=== PATIENT | female | born 1995 | race Caucasian/White ===

== ENCOUNTER 2023-03-01 13:57 | Outpatient (REF) | payer MEDICAID, SELFPAY ==
--- NOTE | ~2023-03-01 | US_ITS ---
EXAMINATION: US BREAST (AXILLA), RIGHT CLINICAL INFORMATION: 27-year-old with small palpable and tender area noted right axilla for just over 2 months. No erythema. COMPARISON: None available. TECHNIQUE: Ultrasound of the right axilla is targeted to the area of clinical concern using grayscale imaging and color Doppler without and with harmonics. Patient is able to point to the area time of imaging. FINDINGS: The palpable concern corresponds to a small benign lymph node just beneath the skin with normal jamshid architecture and color flow pattern. Overall dimensions are 0.9 x 0.3 x 0.6 cm. There is no skin thickening or edema tracking in soft tissue planes. No lymphadenopathy or cystic or solid mass. No hyperemia. Results are discussed with the patient at time of visit. US/US breast RT limited IMPRESSION: - Small lymph node just beneath the skin in the right axilla measuring 0.9 x 0.3 x 0.6 cm corresponding to the palpable concern. ASSESSMENT: BI-RADS 2: Benign RECOMMENDATION: Patient should be managed based on the clinical impression as needed.
== END 2023-03-01 13:58 | disposition home or self-care (01) ==
LOC: HO.MAMMO 13:57
PROVIDERS: PCP Student in an Organized Health Care Education/Training Program; Visit Provider Student in an Organized Health Care Education/Training Program
DX: N63.11 Unspecified lump in the right breast, upper outer quadrant (principal)
CPT/HCPCS: 76642

== ENCOUNTER 2023-03-22 03:08 | Inpatient (IN) | payer MEDICAID, SELFPAY ==
[2023-03-22] VITALS (9 sets, daily range): BP systolic 94–109; BP diastolic 46–67; PULSE 56–86; RESP 12–25; TEMP 36.4–37.1; O2SAT 96–100; BMI 18.5
--- NOTE | ~2023-03-22 | CT_ITS ---
EXAMINATION: CT ABDOMEN AND PELVIS WITHOUT CONTRAST CLINICAL INFORMATION: Left flank pain, rule out obstructive uropathy COMPARISON: None available. TECHNIQUE: Multidetector volumetric imaging was performed from the superior aspect of the liver through the pubic symphysis. Sagittal and coronal reformatted images were obtained on the technologist's workstation. This CT examination was performed using dose optimization techniques as appropriate, variously including the following: *Automated exposure control *Adjustment of mA and/or kV according to patient size (this includes techniques or standardized protocols for targeted exams where dose is matched to indication/reason for exam; i.e. extremities or head) *Use of iterative reconstruction technique DLP: 299 mGy-cm FINDINGS: LUNG BASES: The visualized lung bases are unremarkable. LIVER, GALLBLADDER, AND BILIARY TREE: The liver is normal in size, shape, and attenuation. No focal hepatic lesion or biliary ductal dilatation is identified on this noncontrast exam. Gallbladder is contracted and not adequately evaluated. PANCREAS: Grossly unremarkable. SPLEEN: Unremarkable. ADRENAL GLANDS: Unremarkable. KIDNEYS AND URETERS: There is a proximal left ureteral calculus measuring 6 mm with mild hydronephrosis. No right hydronephrosis. BLADDER: Nearly empty and not adequately evaluated. GASTROINTESTINAL TRACT: No evidence of bowel obstruction. Limited assessment for wall thickening within some segments of the colon due to incomplete distention. Appendix appears nondilated. No free fluid or free air is seen. ABDOMINAL WALL: No significant hernia is appreciated. LYMPH NODES: Not adequately assessed in the absence of intravenous contrast and lack of intra-abdominal fat. VASCULAR: Unremarkable. PELVIC VISCERA: Grossly unremarkable. OSSEOUS STRUCTURES: Unremarkable. CT/CT abdomen pelvis wo IV con IMPRESSION: Proximal left ureteral calculus measuring 6 mm with mild hydronephrosis.
--- NOTE | ~2023-03-22 | FL_ITS ---
EXAMINATION: XR FLUOROSCOPY WITH IMAGES CLINICAL INFORMATION: Kidney stone COMPARISON: CT abdomen pelvis 03/22/2023 TECHNIQUE: FT: 74.4 sec .Images: 9. Dose: 9.34 mGy. DAP: N/A *performed by Dr. Andres FL/FL guidance in OR FINDINGS/impression: Spot views show retrograde contrast opacifying the proximal left ureter. Guidewire was placed in the collecting system. Double-J stent successfully placed from the renal pelvis to the bladder.
--- NOTE | 2023-03-22 03:29 | PC.NURSE ---
pt c/o LLQ pain that caused her to wake out of sleep, syncopal event witnessed by boyfriend, denies headstrike, denies injury pt is restless and tearful pt appears pale aox4 guarding affected area placed on continuous retail sales merchandiser
[2023-03-22 03:38] LABS: Basophils Absolute Auto 0.1 X10*3/uL (0.0-0.2); Basophils Percent Auto 0.8 % (0-2); Eosinophils Absolute Auto 0.2 X10*3/uL (0.0-0.4); Eosinophils Percent Auto 2.4 % (0-4); Hematocrit 34.5 % (37.0-47.0); Hemoglobin 11.8 g/dl (12.0-16.0); Imm Gran Abs Auto 0.02 X10*3/uL (0.00-0.03); Imm Gran Pct Auto 0.2 % (0.0-0.4); Lymphocytes Absolute Auto 3.9 X10*3/uL (1.2-4.9); Lymphocytes Percent Auto 47.7 % (20-40); MANUAL DIFF FLAG NO; Mean Corpuscular HGB Conc 34.2 g/dl (31.0-35.0); Mean Corpuscular Hemoglobin 31.5 pg (27.0-33.0); Mean Platelet Volume 10.6 fL (9.4-12.3); Monocytes Absolute Auto 0.8 X10*3/uL (0.1-1.2); Monocytes Percent Auto 9.7 % (2-11); Neutrophils Absolute Auto 3.2 x10*3/uL (2.0-8.3); Neutrophils Percent Auto 39.2 % (45-73); Platelet Count 290 X10*3/uL (160-400); Red Blood Count 3.75 X10*6/uL (4.20-5.50); Red Cell Distribution Width 12.2 % (11.0-16.0); White Blood Count 8.2 X10*3/uL (4.8-10.8)
--- NOTE | 2023-03-22 03:39 | ED_ITS ---
HPI - Abdominal Pain General Chief Complaint: Abdominal Pain Stated Complaint: ABD PAIN Time Seen by Provider: 03/22/23 03:20 Source: patient, family and EMS Mode of arrival: EMS Limitations: no limitations History of Present Illness HPI narrative: 27-year-old female came in by ambulance for evaluation of 2 days of left-sided abdominal pain, pain started as an intermittent pain localized to the left abdomen now the pain is more constant and severe 10/10 radiates to the back toward the left flank area, patient declined chance of being on her menstruation now, pain is associated with nausea and vomiting but no diarrhea, normal bowel movement. Sexually active with 1 partner declined any vaginal discharge, or abnormal vaginal bleeding, no fever or chills, never had intra-abdominal surgery in the past, last bowel movement was this morning and was normal. Related Data Allergies Allergy/AdvReac Type Severity Reaction Status Date / Time No Known Allergies Allergy Verified 03/22/23 03:25 [No Known Allergies*] Review of Systems Review of Systems All other systems are reviewed and are negative Constitutional: Reports as per HPI and Reports no additional constitutional complaints Eyes: Reports as per HPI and Reports no additional eye complaints Reports system reviewed and no additional complaints, except as documented Cardiovascular: Reports as per HPI and Reports no additional cardiovascular complaints Respiratory: Reports as per HPI and Reports no additional respiratory complaints Gastrointestinal: Reports as per HPI and Reports no additional gastrointestinal complaints Genitourinary: Reports no additional female genitourinary complaints Musculoskeletal: Reports no additional musculoskeletal complaints Skin/Breast: Reports system reviewed and no additional complaints, except as docu Psychiatric: Reports no additional psychiatric complaints Endocrine: Reports no additional endocrine complaints Hematologic/Lymphatic: Reports no additional hematologic/lymphatic complaints Allergic/Immunologic: Reports no additional allergic/immunologic complaints Reports system reviewed and no additional complaints, except as documented and Reports Abnormal speech present [facility] Social History Social History Alcohol intake: never Smoked in Last 30 Days: No Use of substances other than those prescribed or required for medical reasons: Yes Substance Use Type: Marijuana Advance Directives: No Advance Directives Information Provided: Yes Physical Exam ED Vital Signs: Vital Signs - 24 hr 03/22/23 03:19 03/22/23 03:54 03/22/23 04:01 Temperature 97.6 F Pulse Rate 68 69 Respiratory Rate 14 25 H 12 Blood Pressure 94/67 108/65 Pulse Oximetry 100 99 Oxygen Delivery Method Room Air Room Air 03/22/23 05:58 03/22/23 04:00 03/22/23 06:00 Temperature 98.1 F 97.9 F Pulse Rate 74 65 Respiratory Rate 14 19 13 Blood Pressure 108/65 109/66 Pulse Oximetry 97 98 Oxygen Delivery Method Room Air Room Air BMI result Body Mass Index 18.5 Vital signs have been reviewed as appeared to be correct. Blood pressure normal. Heart rate normal. Respiration rate normal. Temperature normal. Oxy gen saturation normal. Appearance: Alert. Oriented X3. No acute distress. Head: Normal external exam. Normocephalic. Atraumatic. No Iyer signs noted. No raccoon eyes noted Eyes: PERRLA. EOMI. Conjunctiva and sclera normal. Eyelids normal. ENT: TM's Normal. Pharynx normal. Uvula midline. Moist mucous membranes. No trismus noted. No drooling noted. No muffled voice noted. Neck: Normal inspection. Neck supple. FROM. No adenopathy. Thyroid Normal. No meningeal signs. No neck mass noted. CVS: Normal heart rate and rhythm. Heart sound normal. No murmurs noted. Pulses normal throughout. Respiratory: No respiratory distress. Painless inspiration. Breath sounds no rmal. No wheezes/rales/rhonchi noted. Chest nontender. No accessory muscle usage noted or decreased air movement noted. Abdomen: Left-sided abdominal tenderness, no rebound tenderness, no guarding. Bowel sounds normal in all 4 quadrants. No distention noted. No organomegaly noted. No visible injury noted. Back: Left CVA tenderness. Full range of motion noted. Skin: Skin warm and dry. Normal skin color. Normal skin turgor. No rashes/lesions/lacerations noted. Extremities: No lower extremity edema. Extremities exhibit normal range of motion. Extremities nontender. Neuro: Oriented X 3. Cranial nerve exam: II-XII are grossly intact No motor deficit. No sensory deficit. Reflexes normal. Course Course Course Narrative: 27-year-old female came in with severe left abdominal/flank pain, physical exam and CT revealing 6 mm in the proximal left ureter also UTI. Patient require mu ltiple doses of Dilaudid/morphine with no satisfactory relief of patient's pain pain is still 10/10 the case discussed with Dr. Amanda Giraldo who will admit. Medical Decision Making Differential Diagnosis Differential Diagnoses: The differential diagnosis associated with the presentation includes (, diverticulitis, appendicitis, kidney stone, ovarian cyst, UTI, electrolyte abnormalities, severe anemia.) Admission/Observation Consideration of admission/observation: Escalation of care including admission/observation considered Consult Healthcare Provider Management of the patient was discussed with: Rotary Slicing Machine Operator (Amanda Harvey) Lab Data MDM Lab Attestation statement: I reviewed the patient's lab results. 03/22/23 03:30 03/22/23 03:30 Labs: Lab Results 03/22/23 03/22/23 03/22/23 Range/Units 03:30 03:30 04:09 WBC 8.2 (4.8-10.8) X10*3/uL RBC 3.75 L (4.20-5.50) X10*6/uL Hgb 11.8 L (12.0-16.0) g/dl Hct 34.5 L (37.0-47.0) % MCV 92.0 (80.0-98.0) fL MCH 31.5 (27.0-33.0) pg MCHC 34.2 (31.0-35.0) g/dl RDW 12.2 (11.0-16.0) % Plt Count 290 (160-400) X10*3/uL MPV 10.6 (9.4-12.3) fL Immature Gran % (Auto) 0.2 (0.0-0.4) % Neut % (Auto) 39.2 L (45-73) % Lymph % (Auto) 47.7 H (20-40) % [place] % (Auto) 9.7 (2-11) % Eos % (Auto) 2.4 (0-4) % Baso % (Auto) 0.8 (0-2) % Lymph # (Auto) 3.9 (1.2-4.9) X10*3/uL [place] # (Auto) 0.8 (0.1-1.2) X10*3/uL Eos # (Auto) 0.2 (0.0-0.4) X10*3/uL Baso # (Auto) 0.1 (0.0-0.2) X10*3/uL Abs Immat Gran (auto) 0.02 (0.00-0.03) X10*3/uL Absolute Neuts (auto) 3.2 (2.0-8.3) x10*3/uL Absolute Nucleated RBC 0.000 (0.0-0.012) X10*3/uL Nucleated RBC % (auto) 0.0 (0.0-0.2) /100WBC Sodium 141 (135-145) mmol/L Potassium 3.5 (3.3-5.1) mmol/L Chloride 108 (96-108) mmol/L Carbon Dioxide 26 (22-29) mmol/L Anion Gap 11 L (12-20) BUN 11 (9-16) mg/dL Creatinine 0.79 (0.5-1.4) mg/dL Estim Creat Clear Calc 87.0 Estimated GFR > 60 Random Glucose 103 (60-115) mg/dL Calcium 9.1 (8.4-10.2) mg/dL Total Bilirubin 0.2 (0.0-1.0) mg/dL Direct Bilirubin < 0.2 (0.0-0.5) mg/dL AST 16 (5-31) U/L ALT 9 (0-31) U/L Alkaline Phosphatase 54 (39-117) U/L Total Protein 6.4 L (6.5-8.0) g/dL Albumin 3.7 (3.5-5.0) g/dL Lipase 17 (8-78) U/L Urine Color Yellow Urine Appearance Cloudy Urine pH 7.5 (5.0-9.0) Ur Specific [place] 1.020 (1.005-1.025) Urine Protein 30 (1+) H (Neg-Trace) mg/dL Urine Glucose (UA) Negative (Negative) mg/dL Urine Ketones Trace (Negative) mg/dL Urine Blood Large (3+) H (Negative) Urine Nitrite Negative (Negative) Ur Leukocyte Esterase Small (1+) H (Negative) Urine RBC >20 H (0-2) /HPF Urine WBC 11-20 H (0-5) /HPF Ur Squamous Epith Cells 3-5 (0-2) /HPF Urine Bacteria None Seen (None Seen) Hyaline Casts 0-2 (0-2) /LPF Urine Test (NEGATIVE) 03/22/23 Range/Units 04:09 WBC (4.8-10.8) X10*3/uL RBC (4.20-5.50) X10*6/uL Hgb (12.0-16.0) g/dl Hct (37.0-47.0) % MCV (80.0-98.0) fL MCH (27.0-33.0) pg MCHC (31.0-35.0) g/dl RDW (11.0-16.0) % Plt Count (160-400) X10*3/uL MPV (9.4-12.3) fL Immature Gran % (Auto) (0.0-0.4) % Neut % (Auto) (45-73) % Lymph % (Auto) (20-40) % [place] % (Auto) (2-11) % Eos % (Auto) (0-4) % Baso % (Auto) (0-2) % Lymph # (Auto) (1.2-4.9) X10*3/uL [place] # (Auto) (0.1-1.2) X10*3/uL Eos # (Auto) (0.0-0.4) X10*3/uL Baso # (Auto) (0.0-0.2) X10*3/uL Abs Immat Gran (auto) (0.00-0.03) X10*3/uL Absolute Neuts (auto) (2.0-8.3) x10*3/uL Absolute Nucleated RBC (0.0-0.012) X10*3/uL Nucleated RBC % (auto) (0.0-0.2) /100WBC Sodium (135-145) mmol/L Potassium (3.3-5.1) mmol/L Chloride (96-108) mmol/L Carbon Dioxide (22-29) mmol/L Anion Gap (12-20) BUN (9-16) mg/dL Creatinine (0.5-1.4) mg/dL Estim Creat Clear Calc Estimated GFR Random Glucose (60-115) mg/dL Calcium (8.4-10.2) mg/dL Total Bilirubin (0.0-1.0) mg/dL Direct Bilirubin (0.0-0.5) mg/dL AST (5-31) U/L ALT (0-31) U/L Alkaline Phosphatase (39-117) U/L Total Protein (6.5-8.0) g/dL Albumin (3.5-5.0) g/dL Lipase (8-78) U/L Urine Color Urine Appearance Urine pH (5.0-9.0) Ur Specific [place] (1.005-1.025) Urine Protein (Neg-Trace) mg/dL Urine Glucose (UA) (Negative) mg/dL Urine Ketones (Negative) mg/dL Urine Blood (Negative) Urine Nitrite (Negative) Ur Leukocyte Esterase (Negative) Urine RBC (0-2) /HPF Urine WBC (0-5) /HPF Ur Squamous Epith Cells (0-2) /HPF Urine Bacteria (None Seen) Hyaline Casts (0-2) /LPF Urine Test NEGATIVE (NEGATIVE) Independent Interpretation I performed an independent interpretation of an: CT Scan (Abdomen and pelvis: 6 mm stone in the proximal ureter with hydronephrosis and hydroureter) Radiology Impression Discussion of test interpretation with radiology: I have reviewed the radiologist's reading. Medications Administered Discontinued Medications Generic Name Dose Route Start Last Admin Trade Name Freq PRN Reason Stop Dose Admin Sodium Chloride 1,000 mls @ 999 mls/hr 03/22/23 03:38 03/22/23 05:07 Ns IV 03/22/23 04:38 Infused .Q1H1M ONE Infusion Ceftriaxone Sodium 1 gm/ 50 mls @ 100 mls/hr 03/22/23 05:48 03/22/23 06:38 Sodium Chloride IV 03/22/23 06:17 Infused ONCE ONE Infusion Morphine Sulfate 2 mg 03/22/23 03:38 03/22/23 03:54 Morphine Sulfate 2 Mg/Ml Cartridge IVPUSH 03/22/23 03:39 2 mg ONCE ONE Administration Protocol Morphine Sulfate 2 mg 03/22/23 05:48 03/22/23 05:58 Morphine Sulfate 2 Mg/Ml Cartridge IVPUSH 03/22/23 05:49 2 mg ONCE ONE Administration Protocol Discharge Plan Discharge Clinical Impression: UTI (urinary tract infection), Calculus of left ureter Patient Disposition: Admitted As Inpatient
[2023-03-22 03:52] LABS: Alanine Aminotransferase 9 U/L (0-31); Albumin Level 3.7 g/dL (3.5-5.0); Alkaline Phosphatase 54 U/L (39-117); Anion Gap 11 (12-20); Aspartate Amino Transferase 16 U/L (5-31); Bilirubin Direct < 0.2 mg/dL (0.0-0.5); Bilirubin Total 0.2 mg/dL (0.0-1.0); Blood Urea Nitrogen 11 mg/dL (9-16); Calcium 9.1 mg/dL (8.4-10.2); Carbon Dioxide 26 mmol/L (22-29); Chloride 108 mmol/L (96-108); Estimated Glomerular Filt Rate > 60; Glucose Random 103 mg/dL (60-115); Lipase 17 U/L (8-78); Potassium 3.5 mmol/L (3.3-5.1); Sodium 141 mmol/L (135-145); Total Protein 6.4 g/dL (6.5-8.0)
[2023-03-22] MEDS: Morphine Sulfate 2 MG/ML CARTRIDGE IVPUSH ×2 (03:54→05:58)
[2023-03-22] MEDS: 0.9 % Sodium Chloride 1,000 ML 999 ML IV (03:55)
[2023-03-22 04:15] LABS: Appearance Urine Cloudy; Color Urine Yellow; Glucose Urine UA Negative (Negative); Leukocyte Esterase Urine Small (1+) (Negative); Nitrite Urine Negative (Negative); PH 7.5 (5.0-9.0); UMIC TRIGGER UACC YES; Urine Blood Large (3+) (Negative); Urine Ketones Trace mg/dL (Negative); Urine Protein 30 (1+) mg/dL (Neg-Trace)
[2023-03-22 04:16] LABS: UPreg QC Valid YES; Urine Pregnancy NEGATIVE (NEGATIVE)
[2023-03-22 04:20] LABS: Bacteria Urine None Seen (None Seen); Hyaline Casts Urine 0-2 /LPF (0-2); RBC Urine >20 /HPF (0-2); UACC Culture Trigger YES
--- NOTE | 2023-03-22 05:50 | PC.NURSE ---
provider declined [id number]
[2023-03-22] MEDS: cefTRIAXone sodium 1 GM in 0.9 % Sodium Chloride 50 ML IV (06:00)
[2023-03-22] MEDS: HYDROmorphone HCl 1 MG/ML SYRINGE IVPUSH (06:59)
--- NOTE | 2023-03-22 07:36 | PC.NURSE ---
handoff report given to LAURO Canales
--- NOTE | 2023-03-22 07:53 | PHA.MEDREC ---
Addendum entered by Payton Roberson [facility] 03/22/23 07:54: Patient takes Yolanda Arreola Original Note: Pharmacy Consult ? Medication Reconciliation Pharmacy has completed the medication reconciliation Patient is only at [facility] at home.
--- NOTE | 2023-03-22 08:51 | PM.HPGS ---
History of Present Illness History of Present Illness Date of Service: 03/23/23 Chief complaint: left ureteral stone, flank pain, UTI Narrative: Flor Vazquez is a 27 year old female admitted for left flank pain. She presented to the ED by ambulance for evaluation of 2 days of left-sided abdominal pain, pain started as an intermittent pain localized to the left abdomen. UA- +WBC's, +RBC's- suggestive of UTI. CTAP notes Left proximal ureteral stone with mild hydronephrosis. Plan IV fluid hydration, pain management, IV ABx, cysto/stent/possible ureteroscopy in AM Review of Systems Review of Systems: 10 point ROS negative other than stated in the [facility] Social History Social History Household Members: Other Household Members Other:: boyfriend Housing: Apartment Do you presently have visiting nurse or other home services: No Alcohol intake: never Patient Tobacco Use Status: Never used Tobacco Smoked in Last 30 Days: No Use of substances other than those prescribed or required for medical reasons: Yes Substance Use Type: Marijuana Substance Use Frequency: Occasionally Last Used Substance: Hours (ago) Currently Displaying Signs/Symptoms of Drug Intoxication Withdrawal: No Any prior treatment program specific to substance use: No Have you been hit, kicked, punched, or otherwise hurt by someone within the past year? If so, by whom?: No Do you feel safe in your current relationship?: Yes Is there a partner from a previous relationship who is making you feel unsafe now?: No Are you made to feel afraid or neglected: No Advance Directives: No Advance Directives Information Provided: Yes Do you have thoughts of harming others: None Do you have a plan to hurt others: No Plan Recently lost weight without trying: No How much weight loss: 2-13 pounds Eating poorly because of decreased appetite: Yes Nutrition screen score: 2 Nutrition Risks: No Nutritional Risk Patient : No : No Poor oral hygiene: No Meds Allergies Allergy/AdvReac Type Severity Reaction Status Date / Time No Known Allergies Allergy Verified 03/22/23 03:25 [No Known Allergies*] Home Medications Medication Instructions Recorded Confirmed Last Taken Type No Known Home Meds 03/22/23 03/22/23 Unknown History Physical Exam Vital Signs: Vital Signs: Last Vital Signs Temp 97.9 F 03/22/23 06:00 Pulse 59 03/22/23 08:50 Resp 14 03/22/23 08:50 BP 102/46 L 03/22/23 08:50 Pulse Ox 97 03/22/23 08:50 O2 Del Method Room Air 03/22/23 08:50 BMI result Body Mass Index 18.5 Const: General: cooperative, healthy appearing and no acute distress Orientation/consciousness: patient oriented x3 HEENT: Head: Yes normal to inspection, Yes normocephalic and Yes atraumatic Eyes: Conjunctivae: conjunctivae normal Neck: Neck: Yes normal visual inspection and Yes trachea midline Chest: Chest palpation & inspection: normal inspection of the chest Resp: Effort & Inspection: normal respiratory effort Cardio: Rate: regular rate GI: Inspection: Yes normal to inspection Palpation (GI): Soft to palpation : General: Yes CVA tenderness on the left Back/Spine/Pelvis: Back: CVA tenderness Skin: General skin exam: no rashes or lesions noted Neuro: General: patient oriented x3 Extrem: General: No edema Psych: Appearance: grossly normal Results Results Labs: Short CBC 03/22/23 Range/Units 03:30 WBC 8.2 (4.8-10.8) X10*3/uL Hgb 11.8 L (12.0-16.0) g/dl Hct 34.5 L (37.0-47.0) % Plt Count 290 (160-400) X10*3/uL BMP 03/22/23 03:30 Sodium 141 Potassium 3.5 Chloride 108 Carbon Dioxide 26 BUN 11 Creatinine 0.79 Calcium 9.1 Liver Function 03/22/23 Range/Units 03:30 Total Bilirubin 0.2 (0.0-1.0) mg/dL Direct Bilirubin < 0.2 (0.0-0.5) mg/dL AST 16 (5-31) U/L ALT 9 (0-31) U/L Alkaline Phosphatase 54 (39-117) U/L Albumin 3.7 (3.5-5.0) g/dL Urine 03/22/23 03/22/23 Range/Units 04:09 04:09 Urine Color Yellow Urine Appearance Cloudy Urine pH 7.5 (5.0-9.0) Ur Specific [place] 1.020 (1.005-1.025) Urine Protein 30 (1+) H (Neg-Trace) mg/dL Urine Glucose (UA) Negative (Negative) mg/dL Urine Test NEGATIVE (NEGATIVE) Abdomen CT scan report/results: report reviewed and image reviewed CT scan - pelvis: report reviewed and image reviewed Additional studies: Date of Service: 03/22/23 EXAMINATION: CT ABDOMEN AND PELVIS WITHOUT CONTRAST? CLINICAL INFORMATION: Left flank pain, rule out obstructive uropathy? COMPARISON: None available. TECHNIQUE: Multidetector volumetric imaging was performed from the superior aspect of the liver through the pubic symphysis. Sagittal and coronal reformatted images were obtained on the technologist's workstation.? This CT examination was performed using dose optimization techniques as appropriate, variously including the following: *Automated exposure control *Adjustment of mA and/or kV according to patient size (this includes techniques or standardized protocols for targeted exams where dose is matched to indication/reason for exam; i.e. extremities or head) *Use of iterative reconstruction technique DLP: 299 mGy-cm FINDINGS: LUNG BASES: The visualized lung bases are unremarkable.? LIVER, GALLBLADDER, AND BILIARY TREE: The liver is normal in size, shape, and attenuation. No focal hepatic lesion or biliary ductal dilatation is identified on this noncontrast exam. Gallbladder is contracted and not adequately evaluated.? PANCREAS: Grossly unremarkable.? SPLEEN: Unremarkable.? ADRENAL GLANDS: Unremarkable.? KIDNEYS AND URETERS: There is a proximal left ureteral calculus measuring 6 mm with mild hydronephrosis. No right hydronephrosis.? BLADDER: Nearly empty and not adequately evaluated.? GASTROINTESTINAL TRACT: No evidence of bowel obstruction. Limited assessment for wall thickening within some segments of the colon due to incomplete distention. Appendix appears nondilated. No free fluid or free air is seen.? ABDOMINAL WALL: No significant hernia is appreciated.? LYMPH NODES: Not adequately assessed in the absence of intravenous contrast and lack of intra-abdominal fat. VASCULAR: Unremarkable. PELVIC VISCERA: Grossly unremarkable.? OSSEOUS STRUCTURES: Unremarkable.? IMPRESSION: Proximal left ureteral calculus measuring 6 mm with mild hydronephrosis. ? Assessment and Plan (1) UTI (urinary tract infection): Status: Acute (2) Calculus of left ureter: Status: Acute (3) Hydronephrosis: Status: Acute Plan Plan IV fluid hydration, pain management, IV ABx, cysto/stent/possible ureteroscopy laser- left Time Spent With Patient Time: Total time managing care of this patient today ____ minutes. Quality Stroke Does the patient have a stroke diagnosis?: No VTE Prior VTE?: No VTE Risk Level:: Surgical - low VTE Device Contraindication: Treatment Not Indicated VTE Drug Contraindication: Treatment Not Indicated Procedures Date of Service Date of Service: 03/23/23
[2023-03-22] MEDS: Ketorolac Tromethamine 15 MG/ML VIAL IVPUSH ×2 (09:25→17:07)
[2023-03-22] MEDS: 0.9 % Sodium Chloride 1,000 ML 125 ML IVCONT ×2 (09:28→16:53)
--- NOTE | 2023-03-22 15:05 | PC.NURSE ---
First attempt to give report 1450. second attempt 1505.
--- NOTE | 2023-03-22 15:32 | PC.NURSE ---
Report to [place] [id number]
[2023-03-22] MEDS: HYDROmorphone HCl 1 MG/ML SYRINGE 0.5 MG IVPUSH (16:27)
[2023-03-22] MEDS: ondansetron HCL 4 MG/2 ML VIAL IVPUSH (17:27)
[2023-03-22] MEDS: oxyCODONE HCl Immed Release 5 MG TABLET PO (20:43)
[2023-03-23] VITALS (12 sets, daily range): BP systolic 105–136; BP diastolic 57–82; PULSE 46–74; RESP 15–18; TEMP 36–36.9; O2SAT 96–100; BMI 18.5
[2023-03-23] MEDS: Ketorolac Tromethamine 15 MG/ML VIAL IVPUSH ×3 (00:49→17:02)
[2023-03-23] MEDS: 0.9 % Sodium Chloride 1,000 ML 125 ML IVCONT ×3 (00:53→17:51)
[2023-03-23] MEDS: HYDROmorphone HCl 1 MG/ML SYRINGE 0.5 MG IVPUSH ×3 (01:12→14:37)
[2023-03-23 06:00] LABS: MANUAL DIFF FLAG NO
[2023-03-23 06:03] LABS: Basophils Absolute Auto 0.1 X10*3/uL (0.0-0.2); Basophils Percent Auto 0.7 % (0-2); Eosinophils Absolute Auto 0.2 X10*3/uL (0.0-0.4); Hematocrit 33.8 % (37.0-47.0); Hemoglobin 11.4 g/dl (12.0-16.0); Imm Gran Abs Auto 0.02 X10*3/uL (0.00-0.03); Imm Gran Pct Auto 0.2 % (0.0-0.4); Lymphocytes Absolute Auto 2.5 X10*3/uL (1.2-4.9); Mean Corpuscular HGB Conc 33.7 g/dl (31.0-35.0); Mean Corpuscular Hemoglobin 32.1 pg (27.0-33.0); Mean Corpuscular Volume 95.2 fL (80.0-98.0); Mean Platelet Volume 10.4 fL (9.4-12.3); Monocytes Absolute Auto 0.9 X10*3/uL (0.1-1.2); Monocytes Percent Auto 10.7 % (2-11); Neutrophils Absolute Auto 4.9 x10*3/uL (2.0-8.3); Neutrophils Percent Auto 57.4 % (45-73); Platelet Count 263 X10*3/uL (160-400); Red Blood Count 3.55 X10*6/uL (4.20-5.50); Red Cell Distribution Width 12.3 % (11.0-16.0); White Blood Count 8.6 X10*3/uL (4.8-10.8)
[2023-03-23 06:28] LABS: Anion Gap 8 (12-20); Blood Urea Nitrogen 7 mg/dL (9-16); Calcium 8.5 mg/dL (8.4-10.2); Carbon Dioxide 24 mmol/L (22-29); Chloride 112 mmol/L (96-108); Creatinine Clr Calc Pharmacy 98.2; Estimated Glomerular Filt Rate > 60; Glucose Random 86 mg/dL (60-115); Sodium 140 mmol/L (135-145)
--- NOTE | 2023-03-23 12:06 | HO.ANESPROP2 ---
HPI - Anesthesia Eval Consult details Narrative: forcysto and ureteoscopy [facility] [place] Active Problems Active Problems: All Active Problems (Updated 03/23/23 @ 09:56 by Amanda Andres MD) Hydronephrosis (Acute) UTI (urinary tract infection) (Acute) Calculus of left ureter (Acute) Family History Family history of problems with anesthesia: No Surgical History History of Problems with Anesthesia: No Social History Social History Household Members: Other Household Members Other:: boyfriend Housing: Apartment Do you presently have visiting nurse or other home services: No Alcohol intake: never Patient Tobacco Use Status: Never used Tobacco Smoked in Last 30 Days: No Use of substances other than those prescribed or required for medical reasons: Yes Substance Use Type: Marijuana Substance Use Frequency: Occasionally Last Used Substance: Hours (ago) Currently Displaying Signs/Symptoms of Drug Intoxication Withdrawal: No Any prior treatment program specific to substance use: No Have you been hit, kicked, punched, or otherwise hurt by someone within the past year? If so, by whom?: No Do you feel safe in your current relationship?: Yes Is there a partner from a previous relationship who is making you feel unsafe now?: No Are you made to feel afraid or neglected: No Are you DNR?: No Advance Directives: No Advance Directives Information Provided: Yes Do you have thoughts of harming others: None Do you have a plan to hurt others: No Plan Recently lost weight without trying: No How much weight loss: 2-13 pounds Eating poorly because of decreased appetite: Yes Nutrition screen score: 2 Nutrition Risks: No Nutritional Risk Patient : No : No Poor oral hygiene: No Meds Allergies Allergy/AdvReac Type Severity Reaction Status Date / Time No Known Allergies Allergy Verified 03/22/23 03:25 [No Known Allergies*] Active Medications: Current Medications Acetaminophen (Acetaminophen 325 Mg Tablet) 650 mg PO Q6H PRN PRN Reason: Pain, Mild (Pain Scale 1-3) Docusate Sodium (Docusate Sodium 100 Mg Capsule) 100 mg PO DAILY PRN PRN Reason: Constipation Hydromorphone HCl (Hydromorphone Hcl 1 Mg/Ml Syringe) 0.5 mg IVPUSH Q4H PRN; Protocol PRN Reason: Pain, Severe (Pain Scale 7-10) Last Admin: 03/23/23 09:52 Dose: 0.5 mg Sodium Chloride (Ns) 1,000 mls @ 125 mls/hr IVCONT .Q8H TIM Last Infusion: 03/23/23 10:43 Dose: 0 mls/hr Cefazolin Sodium 1 gm/ Sodium (Chloride) 50 mls @ 100 mls/hr IV Q8H [facility] Last Infusion: 03/23/23 09:23 Dose: Infused Lactated Ringer's (Lr) 1,000 mls @ 50 mls/hr IVCONT .Q20H TIM Ketorolac Tromethamine (Ketorolac Tromethamine 15 Mg/Ml Vial) 15 mg IVPUSH Q8H [facility] Last Admin: 03/23/23 08:46 Dose: 15 mg Ondansetron HCl (Ondansetron Hcl 4 Mg/2 Ml Vial) 4 mg IVPUSH Q8H PRN PRN Reason: Nausea and Vomiting Last Admin: 03/22/23 17:27 Dose: 4 mg Oxycodone HCl (Oxycodone Hcl Immed Release 5 Mg Tablet) 5 mg PO Q6H PRN PRN Reason: Pain, Moderate(Pain Scale 4-6) Last Admin: 03/22/23 20:43 Dose: 5 mg Sodium Chloride (0.9 % Sodium Chloride Flush 3 Ml Syringe) 3 ml IVFLUSH QSHIFT [facility] Last Admin: 03/23/23 07:28 Dose: Not Given Home Medications Medication Instructions Recorded Confirmed Last Taken Type No Known Home Meds 03/22/23 03/22/23 Unknown History Exam Exam Date and Time: March 23, 2023 1206 Height,Weight and Vital Signs: Height 5 ft 6 in Weight 52 kg Last Vital Signs Temp 98.5 F 03/23/23 11:00 Pulse 61 03/23/23 11:00 Resp 15 03/23/23 11:00 BP 106/69 03/23/23 11:00 Pulse Ox 99 03/23/23 11:00 O2 Del Method Room Air 03/23/23 11:00 Pertinent Lab Results Pertinent Lab Results: Laboratory Tests 03/22/23 03/22/23 03/22/23 03:30 03:30 04:09 WBC 8.2 RBC 3.75 L Hgb 11.8 L Hct 34.5 L MCV 92.0 MCH 31.5 MCHC 34.2 RDW 12.2 Plt Count 290 MPV 10.6 Immature Gran % (Auto) 0.2 Neut % (Auto) 39.2 L Lymph % (Auto) 47.7 H [place] % (Auto) 9.7 Eos % (Auto) 2.4 Baso % (Auto) 0.8 Lymph # (Auto) 3.9 [place] # (Auto) 0.8 Eos # (Auto) 0.2 Baso # (Auto) 0.1 Abs Immat Gran (auto) 0.02 Absolute Neuts (auto) 3.2 Absolute Nucleated RBC 0.000 Nucleated RBC % (auto) 0.0 Sodium 141 Potassium 3.5 Chloride 108 Carbon Dioxide 26 Anion Gap 11 L BUN 11 Creatinine 0.79 Estim Creat Clear Calc 87.0 Estimated GFR > 60 Random Glucose 103 Calcium 9.1 Total Bilirubin 0.2 Direct Bilirubin < 0.2 AST 16 ALT 9 Alkaline Phosphatase 54 Total Protein 6.4 L Albumin 3.7 Lipase 17 Urine Color Yellow Urine Appearance Cloudy Urine pH 7.5 Ur Specific [place] 1.020 Urine Protein 30 (1+) H Urine Glucose (UA) Negative Urine Ketones Trace Urine Blood Large (3+) H Urine Nitrite Negative Ur Leukocyte Esterase Small (1+) H Urine RBC >20 H Urine WBC 11-20 H Ur Squamous Epith Cells 3-5 Urine Bacteria None Seen Hyaline Casts 0-2 Urine Test 03/22/23 03/23/23 03/23/23 04:09 05:49 05:49 WBC 8.6 RBC 3.55 L Hgb 11.4 L Hct 33.8 L MCV 95.2 MCH 32.1 MCHC 33.7 RDW 12.3 Plt Count 263 MPV 10.4 Immature Gran % (Auto) 0.2 Neut % (Auto) 57.4 Lymph % (Auto) 29.0 [place] % (Auto) 10.7 Eos % (Auto) 2.0 Baso % (Auto) 0.7 Lymph # (Auto) 2.5 [place] # (Auto) 0.9 Eos # (Auto) 0.2 Baso # (Auto) 0.1 Abs Immat Gran (auto) 0.02 Absolute Neuts (auto) 4.9 Absolute Nucleated RBC 0.000 Nucleated RBC % (auto) 0.0 Sodium 140 Potassium 4.0 Chloride 112 H Carbon Dioxide 24 Anion Gap 8 L BUN 7 L Creatinine 0.70 Estim Creat Clear Calc 98.2 Estimated GFR > 60 Random Glucose 86 Calcium 8.5 D Total Bilirubin Direct Bilirubin AST ALT Alkaline Phosphatase Total Protein Albumin Lipase Urine Color Urine Appearance Urine pH Ur Specific [place] Urine Protein Urine Glucose (UA) Urine Ketones Urine Blood Urine Nitrite Ur Leukocyte Esterase Urine RBC Urine WBC Ur Squamous Epith Cells Urine Bacteria Hyaline Casts Urine Test NEGATIVE Airway TM Dist: >3cm Neck ROM: Full Heart: rrr Lungs: cta Assessment and Plan Assessment Anesthesia Assessment: Anesthesia Plan Discussed and Chart Reviewed Final Anesthetic Review Family History of Problems with Anesthesia: No History of Problems with Anesthesia: No NPO: Yes ASA Class: II Final Preanesthetic Review: No Changes in Pt Med Stat, Meds/Allgs Chart Reviewed, Consent Obtained/Reviewed and Anes Risks/Benef Reviewed Patient Risk: Low Procedure Risk: Low Anesthetic Plan Anesthetic Plan: GA Disposition: Inp. Admit - [facility]
--- NOTE | 2023-03-23 12:36 | MHC.CM.PN ---
CM ATTEMPTED TO MEET W/PT HOWEVER PT OFF UNIT FOR STENT PLACEMENT, CM WILL REVISIT.
--- NOTE | 2023-03-23 13:17 | W.PM.OPN ---
Operative Note Operative Note Date of Service: 03/23/23 Narrative: PreOperative Diagnosis:?? left proximal ureteral stone Post Operative Diagnosis:?? left proximal ureteral stone Procedure: - cystoscopy, left retrograde, left ureteroscopy laser lithotripsy stent insertion, 6 [place] by 24 cm Surgeon:?Dr Amanda Andres Anesthesia:? General Indications for procedure: Flor is a 27 year old female presented with left flank pain CTAP - 6 mm obstructing left proximal ureteral stone. Procedure: After informed consent was verified the patient was brought to the operating placed on the OR table in supine position.? General Anesthesia was administered per protocol.? The patient was placed in lithotomy position, prepped and draped in the usual sterile fashion.? Safety pause time-out and side of surgery confirmed.? Antibiotics confirmed. 2% lidocaine jelly 10 mL was passed transurethrally. A 22 [place] cystoscope was inserted transurethrally, The bladder was visualized.? Both ureteric orifices were in normal position. An open-ended ureteral catheter was passed into the left ureteral orifice and a retrograde examination was performed. There was a filling defect in the proximal ureter and dilatation of the proximal ureter and renal pelvis and calices. A guidewire was passed through the ureteral catheter into the kidney. The balloon dilator size 12 fr was passed over the guide -wire the balloon was inflated to 10 mmHg and the intramural ureter was dilated for 50 seconds. The balloon was deflated and removed. After removing the balloon dilator a 2nd guidewire was then passed into the kidney to use as a safety. On subsequent fluoroscopy, the stone was noted to have migrated into the kidney. The cystoscope was removed, leaving both guidewires in place. One guidewire was used as the safety and was attached to the draping. The desposible flexible ureteroscope was passed over one of the guidewires into the kidney, the stone was visualized. One guidewire was then removed. Laser lithotripsy of the stone was done using the 220 fiber with a settings 0.8 joules by 6 hertz alternating with 0.5 by 20 hz. There was good fragmentation of the stone. The ureteroscope was removed. The cystoscope was passed over the safety guidewire. A? 6 [place] by 24 cm stent was placed into the ureter and renal pelvis under a combination of fluoroscopy and direct visualization. The bladder was emptied.? The rigid cystoscope was removed. ? The patient tolerated the procedure well and was brought to the recovery room in stable condition. Complications: None Drains: Ureteral stent as dictated above
--- NOTE | 2023-03-23 13:57 | MHC.CLN ---
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
[2023-03-23] MEDS: predniSONE 20 MG TABLET PO (14:19)
[2023-03-23] MEDS: Tamsulosin HCL 0.4 MG CAPSULE PO (14:19)
--- NOTE | 2023-03-23 16:23 | MHC.CM.PN ---
EMR REVIEWED, CM MET W/PT AT BEDSIDE AND S.O. THERE WELL, PT DECLINED WET TRIMMER AND WAS ABLE TO ANSWER ALL QUESTIONS, PT LIVES W/S.O. AND DTR, IS INDEP W/ALL CARE, NO DME/SERVICES, PT VERIFIES PCP IS AT [facility], DENIES RECEIVING VACCINES FOR COVID19, PT EDUCATED ON AND DECLINES TO COMPLETE AN HCP. ANTIC D/C HOME NO SERVICES W/S.O. FOR TRANSPORT WHEN MEDICALLY CLEARED.
[2023-03-23] MEDS: oxyCODONE HCl Immed Release 5 MG TABLET PO (17:49)
[2023-03-23] MEDS: Acetaminophen 325 MG TABLET 650 MG PO (20:07)
[2023-03-24] MEDS: Melatonin 3 MG TABLET PO (00:23)
[2023-03-24] MEDS: Ketorolac Tromethamine 15 MG/ML VIAL IVPUSH ×2 (00:26→08:06)
[2023-03-24] MEDS: 0.9 % Sodium Chloride 1,000 ML 125 ML IVCONT (00:37)
[2023-03-24 03:09] VITALS: BP 99/60; PULSE 65; RESP 16; TEMP 36.4; O2SAT 98
[2023-03-24] MEDS: oxyCODONE HCl Immed Release 5 MG TABLET PO (04:47)
[2023-03-24 07:42] VITALS: BP 102/64; PULSE 72; RESP 16; TEMP 36.7; O2SAT 99
--- NOTE | 2023-03-24 10:09 | HO.POSTANES ---
Post Anesthesia Evaluation Post Anesthesia Evaluation Date of Service: 03/24/23 Vital Signs: Vital Signs Temp Pulse Resp BP Pulse Ox O2 Del Method 03/24/23 07:42 98.0 F 72 16 102/64 99 Room Air 03/24/23 03:09 97.5 F 65 16 99/60 98 Room Air Anesthesia: General Mental Status: Awake Pain Control: Satisfactory Nausea/Vomiting: None Hydration: Adequate Anesthesia-Related Issues: No Anes. Related Issues
--- NOTE | 2023-03-24 15:08 | MHC.CM.PN ---
pt dcd home no skilled servceis ordered by
--- NOTE | 2023-06-14 20:44 | P.DS_ITS ---
DS: Providers Provider Date of Service: 03/24/23 Date of admission: 03/22/23 08:45 Date of discharge: 03/24/23 Primary care physician: Kimberly Moreno MD Admitting clinician: Amanda nAdres Attending physician on admission: Amanda Andres Attending physician on discharge: Amanda Andres Discharging clinician: Amanda Andres DS: Diagnosis Discharge Diagnosis (1) UTI (urinary tract infection): Status: Acute (2) Calculus of left ureter: Status: Acute (3) Hydronephrosis: Status: Resolved DS: Summary Hospital Course Hospital Course: Flor Vazquez is a 27 year old female admitted for left flank pain. She presented to the ED by ambulance for evaluation of 2 days of left-sided abdominal pain, pain started as an intermittent pain localized to the left abdomen. UA- +WBC's, +RBC's- suggestive of UTI. CTAP noted Left proximal ureteral stone with mild hydronephrosis. Hospital course: IV fluid hydration, pain management, IV ABx, s/p left retrograde, left ureteroscopy laser lithotripsy stent insertion, 6 [place] by 24 cm Time Spent with Patient Time attestation: Total time managing care of this patient today ____ minutes. Discharge coordination time: Greater than 30 minutes Quality: Safe Use of Opioids Does Pt have an Active Cancer Diagnosis on the Problem List?: No Quality: Stroke Does the patient have a stroke diagnosis?: No Physical Exam Vital Signs: Vital Signs: Last Vital Signs Temp 98.0 F 03/24/23 07:42 Pulse 72 03/24/23 07:42 Resp 16 03/24/23 07:42 BP 102/64 03/24/23 07:42 Pulse Ox 99 03/24/23 07:42 O2 Del Method Room Air 03/24/23 07:42 BMI result Body Mass Index 18.5 DS: Data Data Completed and Pending Completed studies during hospitalization [Text1]: Procedures Dilation of Left Ureter with Intraluminal Device, Via Natural or Artificial Opening Endoscopic (03/22/23) Fluoroscopy of Left Kidney, Ureter and Bladder (03/22/23) Fragmentation in Left Ureter, Via Natural or Artificial Opening Endoscopic (03/22/23) Discharge Plan Discharge Anticipated Discharge Date/Time: 03/24/23 14:39 Patient Disposition: Home, Self-Care Discharge Diagnosis: ureteral stone Referrals: [place],[facility] [Physician] - 1 Week Discharge Medications: New hydromorphone [Dilaudid] 2 mg tablet 2 mg PO Q8-12H PRN (Reason: pain) Qty: 5 0RF Rx Instructions: Partial Fill upon patient request. hydroxyzine HCl 25 mg tablet 25 mg PO BEDTIME Qty: 30 0RF naproxen 375 mg tablet 375 mg PO BID PRN (Reason: pain) Qty: 20 0RF phenazopyridine [Pyridium] 200 mg tablet 200 mg PO TID PRN (Reason: urinary pain or burning) Qty: 30 0RF Rx Instructions: take with food No Action levofloxacin 750 mg tablet 750 mg PO DAILY Qty: 9 0RF naproxen 500 mg tablet 500 mg PO BID PRN (Reason: pain) Qty: 20 0RF tramadol 50 mg tablet 50 mg PO BID PRN (Reason: pain) Qty: 7 0RF Discharge Orders: Discharge Order (Routine); Ordered 03/24/23 Ordered By: Amanda Andres Diet: Advance to usual diet Activity on Discharge: No heavy lifting Stand Alone Forms: Patient Portal Discharge page Activity Restrictions/Additional Instructions: Return to work 03/30/23 Care Plan Goals: FU with for ureteral stent removal Health Concerns: Adequate fluid intake, low sodium diet Plan of Treatment: FU with urology Assessment: Stable for discharge Discharge Date/Time: 03/24/23 15:13
== END 2023-03-24 15:13 | disposition home or self-care (01) | DRG 463 ==
LOC: HO.ED 08:17 → HO.EDOVER 08:59 → HO.S3 14:21
PROVIDERS: Admitting Provider Urology; Emergency Provider Emergency Medicine; PCP Student in an Organized Health Care Education/Training Program; Visit Provider Urology
PROC: 0TF78ZZ Fragmentation in Left Ureter, Via Natural or Artificial Opening Endoscopic (ICD-10-PCS; principal; 2023-03-23 11:30)
DX: N13.6 Pyonephrosis (principal)
CPT/HCPCS: 36415; 74176; 80048; 80053; 81001; 81025; 82248; 83690; 85025; 87070; 87086; 87205; 99285; C1726; C1769; C2617; J0131; J0690; J0696; J1100; J1170; J1885; J1956; J2270; J2405; J3010; Q9967

== ENCOUNTER → 2023-03-22 08:45 | Outpatient (BNV) | payer MEDICAID, SELFPAY | PROVIDERS: Admitting Provider Urology; Emergency Provider Emergency Medicine; Visit Provider Urology | DX: N39.0 Urinary tract infection, site not specified (principal); N20.1 Calculus of ureter; N13.30 Unspecified hydronephrosis | CPT/HCPCS: 52356; 99222; 99239 ==

== ENCOUNTER 2023-04-03 16:21 | Emergency (ER) | payer MEDICAID, SELFPAY ==
--- NOTE | ~2023-04-03 | CT_ITS ---
EXAMINATION: CT ABDOMEN AND PELVIS WITHOUT CONTRAST CLINICAL INFORMATION: pain to stent. COMPARISON: 02/20/2023. TECHNIQUE: Multidetector volumetric imaging was performed from the superior aspect of the liver through the pubic symphysis without contrast per renal stone protocol. Sagittal and coronal reformatted images were obtained on the technologist workstation. This CT examination was performed using dose optimization techniques as appropriate, variously including the following: *Automated exposure control *Adjustment of mA and/or kV according to patient size (this includes techniques or standardized protocols for targeted exams where dose is matched to indication/reason for exam; i.e. extremities or head) *Use of iterative reconstruction technique DLP: 322 mGy-cm. FINDINGS: LUNG BASES: Minimal dependent atelectasis LIVER, GALLBLADDER, BILIARY TREE: The non-contrast liver is normal in size, shape, and attenuation. No focal hepatic lesion or biliary ductal dilatation is present. The gallbladder is unremarkable with no evidence of radiopaque gallstones, gallbladder wall thickening, or obvious pericholecystic inflammatory changes. PANCREAS: Unremarkable. SPLEEN: Unremarkable. ADRENAL GLANDS: Unremarkable. KIDNEYS AND URETERS: The kidneys are normal in size, shape, and attenuation. Left ureteric stent is in place No hydronephrosis, hydroureter, or obstructing calculi seen. No perinephric stranding. BLADDER: Decompressed but otherwise unremarkable GASTROINTESTINAL TRACT: The small and large bowel are unremarkable. The appendix is unremarkable. ABDOMINAL WALL: No significant hernia is appreciated. LYMPHOVASCULAR STRUCTURES: No lymphadenopathy. The aorta is unremarkable.. PELVIC VISCERA: Unremarkable. OSSEUS STRUCTURES: Unremarkable. CT/CT abdomen pelvis wo IV con IMPRESSION: Left ureteric stent in place. No hydronephrosis or hydroureter. No acute intra-abdominal process seen.
--- NOTE | 2023-04-03 16:48 | ED_ITS ---
HPI - General Adult General Chief complaint: Urogenital-Female Stated complaint: urinary stent pain Time Seen by Provider: 04/04/23 00:34 Source: patient Mode of arrival: ambulatory Limitations: no limitations History of Present Illness HPI narrative: Patient comes to the emergency room complaining of left flank pain. Patient states that approximately 11 days ago patient had a ureteral stent placed in the left side. Patient states that she has had pain for the whole time since she was discharged from the hospital. Patient was managing it with hydromorphone p.o. and naproxen. Patient ran out of medications 4 days ago. Patient states that today she started noticing that the urine has a foul smell. Patient denies fever or chills. Patient states that she has been trying to get in touch throughout the whole week with the nurse urology office. Patient states that she was told by Urology that her stent need to be removed in this days, 7-10 days after her stent placement. Patient called the office and the patient states that the patient was told that she cannot be seen until the end of April. Related Data Previous Rx's Medication Instructions Recorded hydromorphone 2 mg tablet 2 mg PO Q8-12H PRN pain #5 tabs 03/24/23 (Dilaudid) hydroxyzine HCl 25 mg tablet 25 mg PO BEDTIME #30 tabs 03/24/23 naproxen 375 mg tablet 375 mg PO BID PRN pain #20 tabs 03/24/23 phenazopyridine 200 mg tablet 200 mg PO TID PRN urinary pain or 03/24/23 (Pyridium) burning #30 tabs levofloxacin 750 mg tablet 750 mg PO DAILY #9 tabs 04/04/23 naproxen 500 mg tablet 500 mg PO BID PRN pain #20 tabs 04/04/23 tramadol 50 mg tablet 50 mg PO BID PRN pain #7 tabs 04/04/23 Allergies Allergy/AdvReac Type Severity Reaction Status Date / Time No Known Allergies Allergy Verified 03/22/23 03:25 [No Known Allergies*] Review of Systems Review of Systems: Constitutional : No Weight loss, No Fever, No Chills, No Night Sweats, No Fatigue, No Malaise ENT/Mouth : No Hearing loss, No Ear Pain, No Nasal Congestion, No Sinus Pain, No Hoarseness, No sore throat, No Rhinorrhea, No Swallowing Difficulty Eyes: No Eye Pain, No Swelling, No Redness, No Foreign Body, No Discharge, No Vision Changes Cardiovascular : No Chest Pain, No SOB, No Dyspnea on Exertion, No Orthopnea, No Edema, No Palpitations Respiratory : No Cough, No Sputum, No Wheezing, No Smoke Exposure, No Dyspnea Gastrointestinal : No Nausea, No Vomiting, No Diarrhea, No Constipation, No abdominal Pain, No Hematochezia, No Melena Genitourinary : Complaining of foul-smelling urine, No Dysuria, No Urinary Frequency, No Hematuria, No Urinary Incontinence, No Urgency, complaining of left-sided Flank Pain, No Urinary Flow Changes, No Hesitancy Musculoskeletal : No joint pain, No Myalgias, No Joint Swelling Skin : No Skin Lesions, No rash Neuro : No Weakness, No Numbness, No Paresthesias, No Loss of Consciousness, No Dizziness, No Headache Psych : No Anxiety/Panic, No Depression, No SI/HI/AH/VH, No Social Issues, Heme/Lymph: No Bruising, No Bleeding,No Lymphadenopathy Endocrine : No Polyuria, No Polydipsia, No Temperature Intolerance PMFSH Past Medical History Medical History Ureteral stent present Social History Social History Household Members: Other Household Members Other:: boyfriend Housing: Apartment Do you presently have visiting nurse or other home services: No Alcohol intake: never Patient Tobacco Use Status: Never used Tobacco Substance Use Type: Marijuana Advance Directives: No Advance Directives Information Provided: Yes service: No Physical Exam ED Vital Signs: Vital Signs - 24 hr 04/03/23 17:04 Temperature 98.4 F Pulse Rate 85 Respiratory Rate 16 Blood Pressure 91/56 L Pulse Oximetry 98 Oxygen Delivery Method Room Air BMI result Body Mass Index 18.4 Const Other: Appearance: Alert. Oriented X3. No acute distress. Well-appearing Eyes: Pupils equal, round and reactive to light. ENT: Pharynx normal. Neck: Normal inspection. Neck supple. No lymph nodes noted. No crepitus CVS: Normal heart rate and rhythm. Pulses normal. Normal S1 and S2 Respiratory: No respiratory distress. Breath sounds normal. No Wheezing. No rales Abdomen: Soft and nontender. No rigidity. No distention. , positive CVA tenderness on the left Skin: Skin warm and dry. Normal skin color. Normal skin turgor. Extremities: No lower extremity edema. No Lacerations. No Rash Neuro: Oriented X 3. No motor deficit. No sensory deficit. Moving all extremities. No slurred speech. CN 2 through 12 grossly intact Psych: calm, cooperative, normal affect Course Course Course Narrative: This is an RME: Additional HPI, ROS, PE not included below will be deferred to primary provider.27 year old female presents w/ L sided flank and abd pain has a stent to her ureter which is bothering her at times a/c nausea. Had stent placed here on 03/23/[address] Harvey. Patient states pain now is 5/10 Plan- labs, imaging Medical Decision Making Medical Decision Making [facility] Narrative: -patient has been having left-sided flank pain since she had her stent placed. Now she continues having left-sided flank pain and now has a UTI. -pyelonephritis versus chronic pain from the stent. -admission was considered. -patient's white blood cell count is normal, no fever or chills, normal blood pressure, sepsis not suspected -patient given p.o. naproxen and levofloxacin -I was able to get in touch with Dr. Hernandez from Urology, admission vs office visit was considered, Dr. Hernandez will pass the message to his staff tomorrow, patient has appointment will be moved up. Patient informed of the plan. Differential Diagnosis Differential Diagnoses: The differential diagnosis associated with the presentation includes (Renal colic, stent pain, pyelonephritis) Admission/Observation Consideration of admission/observation: Escalation of care including admission/observation considered Consult Healthcare Provider Management of the patient was discussed with: Dry Plasterer Helper Lab Data [facility] Lab Attestation statement: I reviewed the patient's lab results. 04/03/23 19:23 04/03/23 19:23 Labs: Lab Results 04/03/23 04/03/23 04/03/23 Range/Units 17:15 17:15 19:23 WBC 6.4 (4.8-10.8) X10*3/uL RBC 4.08 L (4.20-5.50) X10*6/uL Hgb 12.6 (12.0-16.0) g/dl Hct 37.8 (37.0-47.0) % MCV 92.6 (80.0-98.0) fL MCH 30.9 (27.0-33.0) pg MCHC 33.3 (31.0-35.0) g/dl RDW 11.7 (11.0-16.0) % Plt Count 380 D (160-400) X10*3/uL MPV 10.4 (9.4-12.3) fL Immature Gran % (Auto) 0.3 (0.0-0.4) % Neut % (Auto) 49.3 (45-73) % Lymph % (Auto) 38.0 (20-40) % [place] % (Auto) 7.5 (2-11) % Eos % (Auto) 3.3 (0-4) % Baso % (Auto) 1.6 (0-2) % Lymph # (Auto) 2.4 (1.2-4.9) X10*3/uL [place] # (Auto) 0.5 (0.1-1.2) X10*3/uL Eos # (Auto) 0.2 (0.0-0.4) X10*3/uL Baso # (Auto) 0.1 (0.0-0.2) X10*3/uL Abs Immat Gran (auto) 0.02 (0.00-0.03) X10*3/uL Absolute Neuts (auto) 3.2 (2.0-8.3) x10*3/uL Absolute Nucleated RBC 0.000 (0.0-0.012) X10*3/uL Nucleated RBC % (auto) 0.0 (0.0-0.2) /100WBC Sodium (135-145) mmol/L Potassium (3.3-5.1) mmol/L Chloride (96-108) mmol/L Carbon Dioxide (22-29) mmol/L Anion Gap (12-20) BUN (9-16) mg/dL Creatinine (0.5-1.4) mg/dL Estim Creat Clear Calc Estimated GFR Random Glucose (60-115) mg/dL Calcium (8.4-10.2) mg/dL Total Bilirubin (0.0-1.0) mg/dL AST (5-31) U/L ALT (0-31) U/L Alkaline Phosphatase (39-117) U/L Total Protein (6.5-8.0) g/dL Albumin (3.5-5.0) g/dL Urine Color [place] Urine Appearance Hazy Urine pH 6.5 (5.0-9.0) Ur Specific [place] 1.015 (1.005-1.025) Urine Protein 300 (3+) H (Neg-Trace) mg/dL Urine Glucose (UA) 250 H (Negative) mg/dL Urine Ketones Trace (Negative) mg/dL Urine Blood Large (3+) H (Negative) Urine Nitrite See Note (Negative) Ur Leukocyte Esterase Large (3+) H (Negative) Urine RBC >20 H (0-2) /HPF Urine WBC 0-5 (0-5) /HPF Ur Squamous Epith Cells 0-2 (0-2) /HPF Urine Bacteria None Seen (None Seen) Hyaline Casts 0-2 (0-2) /LPF Urine Test NEGATIVE (NEGATIVE) 04/03/23 Range/Units 19:23 WBC (4.8-10.8) X10*3/uL RBC (4.20-5.50) X10*6/uL Hgb (12.0-16.0) g/dl Hct (37.0-47.0) % MCV (80.0-98.0) fL MCH (27.0-33.0) pg MCHC (31.0-35.0) g/dl RDW (11.0-16.0) % Plt Count (160-400) X10*3/uL MPV (9.4-12.3) fL Immature Gran % (Auto) (0.0-0.4) % Neut % (Auto) (45-73) % Lymph % (Auto) (20-40) % [place] % (Auto) (2-11) % Eos % (Auto) (0-4) % Baso % (Auto) (0-2) % Lymph # (Auto) (1.2-4.9) X10*3/uL [place] # (Auto) (0.1-1.2) X10*3/uL Eos # (Auto) (0.0-0.4) X10*3/uL Baso # (Auto) (0.0-0.2) X10*3/uL Abs Immat Gran (auto) (0.00-0.03) X10*3/uL Absolute Neuts (auto) (2.0-8.3) x10*3/uL Absolute Nucleated RBC (0.0-0.012) X10*3/uL Nucleated RBC % (auto) (0.0-0.2) /100WBC Sodium 142 (135-145) mmol/L Potassium 3.6 (3.3-5.1) mmol/L Chloride 108 (96-108) mmol/L Carbon Dioxide 24 (22-29) mmol/L Anion Gap 14 (12-20) BUN 13 (9-16) mg/dL Creatinine 0.67 (0.5-1.4) mg/dL Estim Creat Clear Calc 95.7 Estimated GFR > 60 Random Glucose 75 (60-115) mg/dL Calcium 9.6 D (8.4-10.2) mg/dL Total Bilirubin 0.4 (0.0-1.0) mg/dL AST 16 (5-31) U/L ALT 13 (0-31) U/L Alkaline Phosphatase 57 (39-117) U/L Total Protein 7.4 (6.5-8.0) g/dL Albumin 4.1 (3.5-5.0) g/dL Urine Color Urine Appearance Urine pH (5.0-9.0) Ur Specific [place] (1.005-1.025) Urine Protein (Neg-Trace) mg/dL Urine Glucose (UA) (Negative) mg/dL Urine Ketones (Negative) mg/dL Urine Blood (Negative) Urine Nitrite (Negative) Ur Leukocyte Esterase (Negative) Urine RBC (0-2) /HPF Urine WBC (0-5) /HPF Ur Squamous Epith Cells (0-2) /HPF Urine Bacteria (None Seen) Hyaline Casts (0-2) /LPF Urine Test (NEGATIVE) Independent Interpretation I performed an independent interpretation of an: CT Scan (There is a stent in the left ureter) Radiology Impression Discussion of test interpretation with radiology: I have reviewed the radiologist's reading. Radiologist Impression: FINDINGS: LUNG BASES: Minimal dependent atelectasis LIVER, GALLBLADDER, BILIARY TREE: The non-contrast liver is normal in size, shape, and attenuation. No focal hepatic lesion or biliary ductal dilatation is present.? The gallbladder is unremarkable with no evidence of radiopaque gallstones, gallbladder wall thickening, or obvious pericholecystic inflammatory changes. PANCREAS: Unremarkable. SPLEEN: Unremarkable. ADRENAL GLANDS: Unremarkable. KIDNEYS AND URETERS: The kidneys are normal in size, shape, and attenuation. Left ureteric stent is in place No hydronephrosis, hydroureter, or obstructing calculi seen. No perinephric stranding. BLADDER: Decompressed but otherwise unremarkable GASTROINTESTINAL TRACT: The small and large bowel are unremarkable. The appendix is unremarkable. ABDOMINAL WALL: No significant hernia is appreciated. LYMPHOVASCULAR STRUCTURES: No lymphadenopathy.? The aorta is unremarkable.. PELVIC VISCERA: Unremarkable. OSSEUS STRUCTURES: Unremarkable. CT/CT abdomen pelvis wo IV con IMPRESSION: Left ureteric stent in place. No hydronephrosis or hydroureter. No acute intra-abdominal process seen. ? Discharge Plan Discharge Clinical Impression: UTI (urinary tract infection), Ureteral stent present Patient Disposition: Home, Self-Care Instructions: Urinary Tract Infection in Women (ED) Additional Instructions: Please follow-up with your urologist and primary care physician tomorrow. If y ou have any worsening or new symptoms, please return to the emergency room or call 911 Prescriptions: New levofloxacin 750 mg tablet 750 mg PO DAILY Qty: 9 0RF naproxen 500 mg tablet 500 mg PO BID PRN (Reason: pain) Qty: 20 0RF tramadol 50 mg tablet 50 mg PO BID PRN (Reason: pain) Qty: 7 0RF No Action hydromorphone [Dilaudid] 2 mg tablet 2 mg PO Q8-12H PRN (Reason: pain) Qty: 5 0RF Rx Instructions: Partial Fill upon patient request. hydroxyzine HCl 25 mg tablet 25 mg PO BEDTIME Qty: 30 0RF naproxen 375 mg tablet 375 mg PO BID PRN (Reason: pain) Qty: 20 0RF phenazopyridine [Pyridium] 200 mg tablet 200 mg PO TID PRN (Reason: urinary pain or burning) Qty: 30 0RF Rx Instructions: take with food
[2023-04-03 17:04] VITALS: BP 91/56; PULSE 85; RESP 16; TEMP 36.9; O2SAT 98; BMI 18.4
[2023-04-03 17:25] LABS: Appearance Urine Hazy; Color Urine Orange; Glucose Urine UA 250 mg/dL (Negative); Leukocyte Esterase Urine Large (3+) (Negative); PH 6.5 (5.0-9.0); Specific Gravity - Urine 1.015 (1.005-1.025); UMIC TRIGGER UACC YES; Urine Blood Large (3+) (Negative); Urine Ketones Trace mg/dL (Negative); Urine Protein 300 (3+) mg/dL (Neg-Trace)
[2023-04-03 17:35] LABS: Bacteria Urine None Seen (None Seen); Hyaline Casts Urine 0-2 /LPF (0-2); RBC Urine >20 /HPF (0-2); Squamous Epithelial Cell Urine 0-2 /HPF (0-2); UACC Culture Trigger YES; WBC Urine 0-5 /HPF (0-5)
[2023-04-03 18:30] LABS: UPreg QC Valid YES; Urine Pregnancy NEGATIVE (NEGATIVE)
[2023-04-03 19:27] LABS: MANUAL DIFF FLAG NO
[2023-04-03 19:42] LABS: Basophils Absolute Auto 0.1 X10*3/uL (0.0-0.2); Basophils Percent Auto 1.6 % (0-2); Eosinophils Absolute Auto 0.2 X10*3/uL (0.0-0.4); Eosinophils Percent Auto 3.3 % (0-4); Hematocrit 37.8 % (37.0-47.0); Hemoglobin 12.6 g/dl (12.0-16.0); Imm Gran Abs Auto 0.02 X10*3/uL (0.00-0.03); Imm Gran Pct Auto 0.3 % (0.0-0.4); Lymphocytes Absolute Auto 2.4 X10*3/uL (1.2-4.9); Mean Corpuscular HGB Conc 33.3 g/dl (31.0-35.0); Mean Corpuscular Hemoglobin 30.9 pg (27.0-33.0); Mean Corpuscular Volume 92.6 fL (80.0-98.0); Mean Platelet Volume 10.4 fL (9.4-12.3); Monocytes Absolute Auto 0.5 X10*3/uL (0.1-1.2); Monocytes Percent Auto 7.5 % (2-11); Neutrophils Absolute Auto 3.2 x10*3/uL (2.0-8.3); Neutrophils Percent Auto 49.3 % (45-73); Platelet Count 380 X10*3/uL (160-400); Red Blood Count 4.08 X10*6/uL (4.20-5.50); Red Cell Distribution Width 11.7 % (11.0-16.0); White Blood Count 6.4 X10*3/uL (4.8-10.8)
[2023-04-03 19:43] LABS: Alanine Aminotransferase 13 U/L (0-31); Albumin Level 4.1 g/dL (3.5-5.0); Alkaline Phosphatase 57 U/L (39-117); Anion Gap 14 (12-20); Aspartate Amino Transferase 16 U/L (5-31); Bilirubin Total 0.4 mg/dL (0.0-1.0); Blood Urea Nitrogen 13 mg/dL (9-16); Calcium 9.6 mg/dL (8.4-10.2); Carbon Dioxide 24 mmol/L (22-29); Chloride 108 mmol/L (96-108); Creatinine Clr Calc Pharmacy 95.7; Estimated Glomerular Filt Rate > 60; Glucose Random 75 mg/dL (60-115); Potassium 3.6 mmol/L (3.3-5.1); Sodium 142 mmol/L (135-145); Total Protein 7.4 g/dL (6.5-8.0)
[2023-04-04 01:02] VITALS: BP 99/65; PULSE 72; RESP 17; TEMP 36.9; O2SAT 96
[2023-04-04] MEDS: NaPROXEN 500 MG TABLET PO (01:17)
== END 2023-04-04 01:21 | disposition home or self-care (01) ==
PROVIDERS: Physician Assistant; Emergency Provider Emergency Medicine
DX: N39.0 Urinary tract infection, site not specified (principal); R10.9 Unspecified abdominal pain; Z96.0 Presence of urogenital implants
CPT/HCPCS: 36415; 74176; 80053; 81001; 81025; 85025; 87086; 99283; 99284

== ENCOUNTER 2023-04-05 18:25 | Outpatient (REF) | payer MEDICAID, SELFPAY ==
[2023-04-05 19:48] LABS: Appearance Urine Turbid; Color Urine RED; Glucose Urine UA 250 mg/dL (Negative); Leukocyte Esterase Urine Moderate (2+) (Negative); Nitrite Urine Positive (Negative); PH 6.5 (5.0-9.0); UMIC TRIGGER UA YES; Urine Blood Large (3+) (Negative); Urine Ketones Trace mg/dL (Negative); Urine Protein 300 (3+) mg/dL (Neg-Trace)
[2023-04-05 19:53] LABS: Bacteria Urine None Seen (None Seen); Hyaline Casts Urine 0-2 /LPF (0-2); RBC Urine >20 /HPF (0-2); WBC Urine 0-5 /HPF (0-5)
== END 2023-04-05 18:26 | disposition home or self-care (01) ==
LOC: HO.HHCLNP 18:25
PROVIDERS: Visit Provider Student in an Organized Health Care Education/Training Program
DX: N20.0 Calculus of kidney (principal); R30.9 Painful micturition, unspecified
CPT/HCPCS: 81001

== ENCOUNTER 2023-04-09 12:03 | Emergency (ER) | payer MEDICAID, SELFPAY ==
[2023-04-09 12:07] VITALS: BP 106/79; PULSE 76; RESP 18; TEMP 36.3; O2SAT 98; BMI 18.4
--- NOTE | 2023-04-09 12:07 | ED_ITS ---
HPI - General Adult General Chief complaint: Urogenital-Female Stated complaint: blood urinate, back pain Time Seen by Provider: 04/09/23 21:02 Source: patient Mode of arrival: ambulatory History of Present Illness HPI narrative: 27-year-old female with left flank pain but no nausea, vomiting, fever, chills. She was here last week on 04/03 and started on Levaquin which she has not been taking consistently. Related Data Previous Rx's Medication Instructions Recorded hydromorphone 2 mg tablet 2 mg PO Q8-12H PRN pain #5 tabs 03/24/23 (Dilaudid) hydroxyzine HCl 25 mg tablet 25 mg PO BEDTIME #30 tabs 03/24/23 naproxen 375 mg tablet 375 mg PO BID PRN pain #20 tabs 03/24/23 phenazopyridine 200 mg tablet 200 mg PO TID PRN urinary pain or 03/24/23 (Pyridium) burning #30 tabs levofloxacin 750 mg tablet 750 mg PO DAILY #9 tabs 04/04/23 naproxen 500 mg tablet 500 mg PO BID PRN pain #20 tabs 04/04/23 tramadol 50 mg tablet 50 mg PO BID PRN pain #7 tabs 04/04/23 Allergies Allergy/AdvReac Type Severity Reaction Status Date / Time No Known Allergies Allergy Verified 03/22/23 03:25 [No Known Allergies*] Review of Systems Review of Systems: Pertinent positives and negatives as stated in HPI [facility] Past Medical History Source: nursing notes reviewed Medical History Ureteral stent present Social History Social History Household Members: Other Household Members Other:: boyfriend Housing: Apartment Do you presently have visiting nurse or other home services: No Alcohol intake: never Patient Tobacco Use Status: Never used Tobacco Smoked in Last 30 Days: No Use of substances other than those prescribed or required for medical reasons: No Substance Use Type: Marijuana Advance Directives: No Advance Directives Information Provided: No service: No Physical Exam ED Vital Signs: Vital Signs - 24 hr 04/09/23 12:07 Temperature 97.4 F Pulse Rate 76 Respiratory Rate 18 Blood Pressure 106/79 Pulse Oximetry 98 Oxygen Delivery Method Room Air BMI result Body Mass Index 18.4 VITAL SIGNS: Reviewed. GENERAL: Well developed, well nourished, in no acute distress. HEAD: Normocephalic/atraumatic EYES: PERRLA, EOMI LUNGS: Normal breath sounds. No adventitious sounds or accessory muscle use. SpO2<98> CARDIOVASCULAR: Regular rate and rhythm without noted murmurs ABDOMEN: Soft, non-tender, non-distended with bowel sounds, no CVA tenderness MUSCULOSKELETAL: No tenderness, deformities, or effusions noted on gross inspection. EXTREMITIES: No cyanosis, clubbing or edema. SKIN: Inspection of the skin reveals no rashes NEUROLOGIC: Alert and oriented x 4. Strength and sensation to light touch were grossly intact x 4. Course Course Course Narrative: RME performed by Jannie Lang PA-C. Patient is a 27 year old assigned female at presenting to the emergency department with concerns of blood in her urine and low back pain. Labs ordered. Patient placed back in the waiting room pending room availability and results. Medications Administered Discontinued Medications Generic Name Dose Route Start Last Admin Trade Name Freq PRN Reason Stop Dose Admin Acetaminophen 975 mg 04/09/23 21:36 04/09/23 21:49 Acetaminophen 325 Mg Tablet PO 04/09/23 21:37 975 mg ONCE ONE Administration Ibuprofen 400 mg 04/09/23 21:36 04/09/23 21:50 Ibuprofen 400 Mg Tablet PO 04/09/23 21:37 400 mg ONCE ONE Administration Medical Decision Making Medical Decision Making [facility] Narrative: 27-year-old female with history and clinical presentation, DDX: Infection, renal colic, spasm. I reviewed all investigations, there is no leukocytosis or left shift, there is a normocytic chronically stable anemia that I feel is likely indicative me nstrual in etiology. Chemistry indices are negative for ELISEO or electrolyte/liver lab abnormalities. Beta hCG is negative. On further discussion patient endorses that she is really not drinking that much water and she was strongly encouraged to increase the amount of water consumption, I did review her microbiology results from her urine sample and I will recommend that she stop taking the antibiotics. She does have follow-up with Dr. Dawit moreno this coming and appears otherwise well and comfortable. She will receive combination analgesics and has a prescribed tramadol and Naprosyn at home. There is no indication to perform another imaging study at this time. Urinalysis negative for UTI, appears to be contaminated with pyridium. She is otherwise stable for discharge and follow-up with Urology. Differential Diagnosis Differential Diagnoses: The differential diagnosis associated with the presentation includes Please see the discussion above Admission/Observation Consideration of admission/observation: Escalation of care including admis alvaro/observation considered Please see the discussion above Lab Data MDM Lab Attestation statement: I reviewed the patient's lab results. Please see the discussion above 04/09/23 12:25 04/09/23 12:25 Labs: Lab Results 04/09/23 04/09/23 04/09/23 Range/Units 12:25 12:25 21:36 WBC 5.1 (4.8-10.8) X10*3/uL RBC 3.76 L (4.20-5.50) X10*6/uL Hgb 11.7 L (12.0-16.0) g/dl Hct 34.6 L (37.0-47.0) % MCV 92.0 (80.0-98.0) fL MCH 31.1 (27.0-33.0) pg MCHC 33.8 (31.0-35.0) g/dl RDW 11.8 (11.0-16.0) % Plt Count 379 (160-400) X10*3/uL MPV 10.2 (9.4-12.3) fL Immature Gran % (Auto) 0.0 (0.0-0.4) % Neut % (Auto) 54.1 (45-73) % Lymph % (Auto) 33.3 (20-40) % [place] % (Auto) 9.6 (2-11) % Eos % (Auto) 1.8 (0-4) % Baso % (Auto) 1.2 (0-2) % Lymph # (Auto) 1.7 (1.2-4.9) X10*3/uL [place] # (Auto) 0.5 (0.1-1.2) X10*3/uL Eos # (Auto) 0.1 (0.0-0.4) X10*3/uL Baso # (Auto) 0.1 (0.0-0.2) X10*3/uL Abs Immat Gran (auto) 0.00 (0.00-0.03) X10*3/uL Absolute Neuts (auto) 2.8 (2.0-8.3) x10*3/uL Absolute Nucleated RBC 0.000 (0.0-0.012) X10*3/uL Nucleated RBC % (auto) 0.0 (0.0-0.2) /100WBC Sodium 140 (135-145) mmol/L Potassium 3.8 (3.3-5.1) mmol/L Chloride 108 (96-108) mmol/L Carbon Dioxide 23 (22-29) mmol/L Anion Gap 13 (12-20) BUN 14 (9-16) mg/dL Creatinine 0.73 (0.5-1.4) mg/dL Estim Creat Clear Calc 87.9 Estimated GFR > 60 Random Glucose 90 (60-115) mg/dL Calcium 9.4 (8.4-10.2) mg/dL Magnesium 2.0 (1.6-2.6) mg/dL Total Bilirubin 0.3 (0.0-1.0) mg/dL AST 15 (5-31) U/L ALT 10 (0-31) U/L Alkaline Phosphatase 65 (39-117) U/L Total Protein 7.1 (6.5-8.0) g/dL Albumin 4.0 (3.5-5.0) g/dL Beta HCG, Quant < 2 mIU/mL Urine Color [place] A Urine Appearance Cloudy Urine pH 6.0 (5.0-9.0) Ur Specific [place] 1.025 (1.005-1.025) Urine Protein 300 (3+) H (Neg-Trace) mg/dL Urine Glucose (UA) Negative (Negative) mg/dL Urine Ketones Negative (Negative) mg/dL Urine Blood Large (3+) H (Negative) Urine Nitrite Negative (Negative) Ur Leukocyte Esterase Moderate (2+) H (Negative) External Record Review External record reviewed: Outpatient record and Prior outpatient labs Discharge Plan Discharge Clinical Impression: Renal colic, Ureteral stent present Patient Disposition: Home, Self-Care Instructions: Renal Colic (ED) Additional Instructions: 1. Resume your home medications as prescribed with the exception of the levofloxacin (Levaquin) as your urine culture is negative. 2. Keep your appointment with your urologist this . Return to the ER for any worsening symptoms. Prescriptions: No Action hydromorphone [Dilaudid] 2 mg tablet 2 mg PO Q8-12H PRN (Reason: pain) Qty: 5 0RF Rx Instructions: Partial Fill upon patient request. hydroxyzine HCl 25 mg tablet 25 mg PO BEDTIME Qty: 30 0RF naproxen 375 mg tablet 375 mg PO BID PRN (Reason: pain) Qty: 20 0RF phenazopyridine [Pyridium] 200 mg tablet 200 mg PO TID PRN (Reason: urinary pain or burning) Qty: 30 0RF Rx Instructions: take with food levofloxacin 750 mg tablet 750 mg PO DAILY Qty: 9 0RF naproxen 500 mg tablet 500 mg PO BID PRN (Reason: pain) Qty: 20 0RF tramadol 50 mg tablet 50 mg PO BID PRN (Reason: pain) Qty: 7 0RF Referrals: [facility] [Primary Care Provider] -
[2023-04-09 12:35] LABS: MANUAL DIFF FLAG NO
[2023-04-09 12:36] LABS: Basophils Absolute Auto 0.1 X10*3/uL (0.0-0.2); Basophils Percent Auto 1.2 % (0-2); Eosinophils Absolute Auto 0.1 X10*3/uL (0.0-0.4); Eosinophils Percent Auto 1.8 % (0-4); Hematocrit 34.6 % (37.0-47.0); Hemoglobin 11.7 g/dl (12.0-16.0); Lymphocytes Absolute Auto 1.7 X10*3/uL (1.2-4.9); Lymphocytes Percent Auto 33.3 % (20-40); Mean Corpuscular HGB Conc 33.8 g/dl (31.0-35.0); Mean Corpuscular Hemoglobin 31.1 pg (27.0-33.0); Mean Platelet Volume 10.2 fL (9.4-12.3); Monocytes Absolute Auto 0.5 X10*3/uL (0.1-1.2); Monocytes Percent Auto 9.6 % (2-11); Neutrophils Absolute Auto 2.8 x10*3/uL (2.0-8.3); Neutrophils Percent Auto 54.1 % (45-73); Platelet Count 379 X10*3/uL (160-400); Red Blood Count 3.76 X10*6/uL (4.20-5.50); Red Cell Distribution Width 11.8 % (11.0-16.0); White Blood Count 5.1 X10*3/uL (4.8-10.8)
[2023-04-09 13:15] LABS: Alanine Aminotransferase 10 U/L (0-31); Alkaline Phosphatase 65 U/L (39-117); Anion Gap 13 (12-20); Aspartate Amino Transferase 15 U/L (5-31); Bilirubin Total 0.3 mg/dL (0.0-1.0); Blood Urea Nitrogen 14 mg/dL (9-16); Calcium 9.4 mg/dL (8.4-10.2); Carbon Dioxide 23 mmol/L (22-29); Chloride 108 mmol/L (96-108); Creatinine Clr Calc Pharmacy 87.9; Estimated Glomerular Filt Rate > 60; Glucose Random 90 mg/dL (60-115); HCG Quantitative < 2 mIU/mL; Potassium 3.8 mmol/L (3.3-5.1); Sodium 140 mmol/L (135-145); Total Protein 7.1 g/dL (6.5-8.0)
[2023-04-09] MEDS: Acetaminophen 325 MG TABLET 975 MG PO (21:49)
[2023-04-09] MEDS: Ibuprofen 400 MG TABLET PO (21:50)
[2023-04-09 21:59] LABS: Appearance Urine Cloudy; Color Urine Orange; Glucose Urine UA Negative (Negative); Leukocyte Esterase Urine Moderate (2+) (Negative); Nitrite Urine Negative (Negative); Specific Gravity - Urine 1.025 (1.005-1.025); UMIC TRIGGER UACC YES; Urine Blood Large (3+) (Negative); Urine Ketones Negative (Negative); Urine Protein 300 (3+) mg/dL (Neg-Trace)
[2023-04-09 22:27] LABS: Bacteria Urine Trace (None Seen); Hyaline Casts Urine 0-2 /LPF (0-2); RBC Urine >20 /HPF (0-2); Squamous Epithelial Cell Urine 0-2 /HPF (0-2); UACC Culture Trigger YES; WBC Urine 21-50 /HPF (0-5)
[2023-04-09 22:44] VITALS: BP 123/63; PULSE 69; RESP 16; O2SAT 96
== END 2023-04-09 22:48 | disposition home or self-care (01) ==
PROVIDERS: Physician Assistant Medical; Emergency Provider Student in an Organized Health Care Education/Training Program
DX: N23 Unspecified renal colic (principal); R31.9 Hematuria, unspecified; Z79.899 Other long term (current) drug therapy
CPT/HCPCS: 36415; 80053; 81001; 83735; 84702; 85025; 87086; 99284

== ENCOUNTER 2023-04-13 11:01 | Outpatient (AMB) | payer MEDICAID, SELFPAY ==
--- NOTE | 2023-04-13 07:28 | A.OFFVIS_ITS ---
Intake Intake Visit Reasons: Stent Removal Intake Note: Patient presents today for a CYSTOSCOPY/STENT Removal Procedure: Meds: Pyridium, Naproxen, Levofloxacin Allergies to Antibiotic: No Known Allergies Blood Thinner: None Disposible Uro-G Cystoscope Cannula: Lot: [id number] Exp: 01/11/2025 [employer] Software Developer Required: No Accompanied by: Significant Other Allergies No Known Allergies [No Known Allergies*] Allergy (Verified 04/13/23 11:34) HPI HPI Comments History of Present Illness Details 04/13/2023-- Flor is a 27-year-old female who presents today to the office for Cystoscopy stent removal. She is a status post operative procedure on 03/23/2023. Patient has had a Cystoscopy, left ureteroscopy, laser lithotripsy, and a stent exchange 6 Fr/24cm She was seen in ER 04/03/2023 for pain. A CAT scan was done at that time which stent was in good position, no stone fragment noted. Plan: Stent removal was done today. Ordered 24-hour urine evaluation. Follow up via televisit video to discuss results. [facility] Medical History (Updated 04/13/23 @ 12:17 by Tunde Benitez) Ureteral stent present Surgical History (Updated 04/13/23 @ 11:35 by MUSTAPHA Sosa) Hx of cystoscopy Family History (Updated 04/13/23 @ 11:35 by MUSTAPHA Sosa) Father No problems noted. Mother No problems noted. Social History Household Members: Other Household Members Other:: boyfriend Housing: Apartment Do you presently have visiting nurse or other home services: No Alcohol intake: never Patient Tobacco Use Status: Never used Tobacco Substance Use Type: Marijuana service: No Review of Systems Const All systems reviewed & are unremarkable except as noted in HPI and below Reports no additional complaints Eyes Reports no additional complaints ENT Reports no additional complaints Card Denies dyspnea Resp Denies cough and Denies dyspnea GI Reports no additional complaints Reports no additional complaints Musc Reports no additional complaints Skin/Breast Denies rash and Denies unusual bruising Neuro Reports no additional complaints Psych Reports no additional complaints Endo Reports no additional complaints Jamarcus/Lymph Reports no additional complaints Aller/Immun Reports no additional complaints Office Procedures Cystoscopy Consent Discussed risk and benefit or proposed procedure with the patient. Information consent for procedure given to the patient. Discussed technical aspects, risks, benefits and alternatives in full. Addressed all of the patient's questions and concerns regarding the procedure. The patient demonstrated knowledge and understanding. They wish to proceed with this procedure. Preparation The patient was prepped in the usual manner. A stove fitter was present and in the room. Genitalia was prepped with betadine solution in a sterile manner. Lidocaine Jelly 2% was placed into the urethra and 16Fr flexible Olympus cystoscope was inserted into the meatus after adequate lubrication. Procedure Time out per protocol performed. Bladder Inspection Cystoscopy findings: mild edema right ureteral orifice which is expected, distal end of ureteral stent visualized. The grasping forceps were used and the stent was removed without difficulty. 60071-[id number] with stent removal DISPOSABLE SCOPE URO-G FLEXIBLE SCOPE Procedure code (CPT) selection complete Office Meds lidocaine HCl Performing Provider: Amanda Andres MD Administered by: Kristina Beauchamp RN on 04/13/23 11:50 Dose Route Admin Location Lot Number Expiration Date [place] Orthopedics Nurse 10 mL intra-urethral naproxen Performing Provider: Amanda Andres MD Administered by: Kristina Beauchamp RN on 04/13/23 11:50 Dose Route Admin Location Lot Number Expiration Date [facility] Orthopedics Nurse 500 mg PO ciprofloxacin HCl Performing Provider: Amanda Andres MD Administered by: Kristina Beauchamp RN on 04/13/23 11:50 Dose Route Admin Location Lot Number Expiration Date [facility] Orthopedics Nurse 500 mg PO Results AMB Urinalysis, Automated UA Leukoctes 500 [place]elda/uL Last Edit by MUSTAPHA Sosa on 04/13/23 13:06 UA Nitrite Negative Last Edit by MUSTAPHA Sosa on 04/13/23 13:06 UA Urobilinogen 0.2 mg/dL Last Edit by Phylicia Stefano, A on 04/13/23 13:0 6 UA Protein 100 mg/dL Last Edit by Phylicia Stefano, A on 04/13/23 13:06 UA pH 6.0 Last Edit by Phylicia Greyirez, RMA on 04/13/23 13:06 UA Blood 200 Edwin/uL Last Edit by Phylicia Greyirez, A on 04/13/23 13:06 UA Specific [place] 1.030 Last Edit by Robertmooarelis Greyirez, RMA on 04/13/23 13: 06 UA Ketone Negative Last Edit by Phylicia Greyirez, A on 04/13/23 13:06 UA Bilirubin 0 mg/dL Last Edit by Robertmooarelis Greyirez, A on 04/13/23 13:06 UA Glucose 0 mg/dL Last Edit by Robertmooarelis Greyirez, A on 04/13/23 13:06 Results Reviewed Results Reviewed: Laboratory Last Values Urine pH (Auto) 6.0 04/13/23 13:04 Specific [place] (Auto) 1.030 04/13/23 13:04 Urine Protein (Auto) 100 mg/dL 04/13/23 13:04 Glucose (UA)(Auto) 0 mg/dL 04/13/23 13:04 Urine Ketones (Auto) Negative 04/13/23 13:04 Urine Blood (Auto) 200 Edwin/uL 04/13/23 13:04 Urine Nitrite (Auto) Negative 04/13/23 13:04 Urine Bilirubin (Auto) 0 mg/dL 04/13/23 13:04 Urine Urobilinogen (Auto) 0.2 mg/dL 04/13/23 13:04 Leukocyte Esterase (Auto) 500 Nelda/uL 04/13/23 13:04 Date of Service: 04/03/23 EXAMINATION: CT ABDOMEN AND PELVIS WITHOUT CONTRAST CLINICAL INFORMATION: pain to stent. COMPARISON: 02/20/2023. FINDINGS: LUNG BASES: Minimal dependent atelectasis LIVER, GALLBLADDER, BILIARY TREE: The non-contrast liver is normal in size, shape, and attenuation. No focal hepatic lesion or biliary ductal dilatation is present.? The gallbladder is unremarkable with no evidence of radiopaque gallstones, gallbladder wall thickening, or obvious pericholecystic inflammatory changes. PANCREAS: Unremarkable. SPLEEN: Unremarkable. ADRENAL GLANDS: Unremarkable. KIDNEYS AND URETERS: The kidneys are normal in size, shape, and attenuation. Left ureteric stent is in place No hydronephrosis, hydroureter, or obstructing calculi seen. No perinephric stranding. BLADDER: Decompressed but otherwise unremarkable GASTROINTESTINAL TRACT: The small and large bowel are unremarkable. The appendix is unremarkable. ABDOMINAL WALL: No significant hernia is appreciated. LYMPHOVASCULAR STRUCTURES: No lymphadenopathy.? The aorta is unremarkable.. PELVIC VISCERA: Unremarkable. OSSEUS STRUCTURES: Unremarkable. IMPRESSION: Left ureteric stent in place. No hydronephrosis or hydroureter. No acute intra-abdominal process seen. Assessment & Plan Assessment & Plan (1) Ureteral stone: Code(s): N20.1 - Calculus of ureter Plan Stent removal was done today. Ordered 24-hour urine evaluation. Follow up via televisit video to discuss results. Orders: Orders AMB Cystoscopy 04/13/23 N20.1 - Calculus of ureter AMB Urinalysis Automated 04/13/23 Z13.9 - Encounter for screening, unspecified Patient Instructions: The patient had an opportunity to ask questions regarding treatment plan. All questions were answered. Imaging, Laboratory studies and physical exam results were discussed and reviewed in detail. No major barriers to understanding were identified. The patient expressed understanding and agreement with the above treatment plan.? ? ? The patient is aware they should contact our office by phone for worsening of their current condition or the appearance of new symptoms. Compliance is encouraged with any medications and followup testing that is ordered.? ? ? It is a privilege to be allowed the opportunity to participate in the urologic care of your patient. If you have any questions or concerns regarding treatment for the above conditions please do not hesitate to contact me. The office telephone contact is [phone].? ? ? This note is constructed in part using voice recognition software. While every effort has been made to ensure accuracy marketing research coordinator errors may have been included.? ? ? Yours sincerely,? ? ? Amanda Andres MD? Coding Level of Care Code Procedure Only Diagnoses Ureteral stone N20.1 CPT Codes Cystoscopy - CPT: 05091-Yroymwlubo with stent removal ([id number]) Cystoscopy - CPT: DISPOSABLE SCOPE URO-G FLEXIBLE SCOPE ([id number])
== END 2023-04-13 12:16 | disposition home or self-care (01) ==
PROVIDERS: Visit Provider Urology
DX: N20.1 Calculus of ureter (principal)
CPT/HCPCS: 52310

== ENCOUNTER → 2023-04-13 11:01 | Outpatient (BNVA) | payer MEDICAID, SELFPAY | PROVIDERS: Visit Provider Urology | DX: Z48.816 Encounter for surgical aftercare following surgery on the genitourinary system (principal) | CPT/HCPCS: 52310; 81003; C1747 ==

== ENCOUNTER 2023-06-09 15:50 | Outpatient (REF) | payer MEDICAID, SELFPAY | END 2023-06-09 15:51 | disposition home or self-care (01) | LOC: HO.HHCL 15:50 | PROVIDERS: Visit Provider Student in an Organized Health Care Education/Training Program | DX: D50.9 Iron deficiency anemia, unspecified (principal) | CPT/HCPCS: 36415; 85025 ==

== ENCOUNTER 2023-10-11 13:38 | Outpatient (AMB) | payer MEDICAID, SELFPAY ==
[2023-10-11 13:47] VITALS: BP 105/58; PULSE 77; BMI 18.5
--- NOTE | 2023-10-11 13:47 | A.OFFVIS_ITS ---
Intake Vital Signs 10/11/23 13:47 Height 5 ft 4 in Weight 108 lb 0.424 oz BMI 18.5 BP 105/58 L Blood Pressure Location Lt brachial Position Sitting Pulse 77 Intake Visit Reasons: abdominal pains Intake Note: Patient presents to in office visit today as a new patient for abdominal pain. CC: Patient reports that a few months ago she started having fecal urgency and if unable to have a BM right away she would get dizziness and a very strong lower abdominal pain. Per patient the last time this happened was about a months ago. She also c/o nausea and one episode of seeing blood when wiping after BM. Denies other GI symptoms. Accounts Receivable Manager Required: Yes Accompanied by: boyfriend Allergies No Known Allergies [No Known Allergies*] Allergy (Verified 10/11/23 13:55) HPI abdominal pains HPI Details 28-year-old female with past medical his tory kidney stone, cystoscopy, lithotripsy is here today for initial consultation. Patient reports that she had a kidney stone removal with stent placed on March 23 with removal in June. Patient reports that few months ago she started with epigastric discomfort specially in the morning and nausea. Patient reports that sometimes she will have loose stools not necessarily related to meals. Patient states that she is for the most part constipated. Reports lower abdominal pain. Has been followed by urology. She does have a history of UTI. Patient denies hall ving any symptoms suggestive of UTI. Denies any burning, urinary frequency. Patient does report cramping in her lower abdomen specially when she is constipated. Patient reports to be bloated almost all the time. Patient denies melena, hematochezia, unintentional weight loss or ribbon like stools. Patient reports that she does not have an appetite due to nausea. Eats couple times a day. Patient does admit to seeing blood after bowel movement when wiping once in the past [facility] Medical History Ureteral stent present Surgical History Hx of cystoscopy Family History Father No problems noted. Mother No problems noted. Maternal Grandmother Stomach cancer Maternal Grandfather Stomach cancer Maternal Aunt Breast cancer Paternal Grandfather Skin cancer Social History Household Members: Other Household Members Other:: boyfriend Housing: Apartment Do you presently have visiting nurse or other home services: No Alcohol intake: never Patient Tobacco Use Status: Never used Tobacco Substance Use Type: Marijuana service: No Review of Systems Const Denies weight gain and Denies weight loss ENT Reports no additional complaints, Denies dysphagia and Denies odynophagia Card Reports no additional complaints Resp Reports no additional complaints GI Reports abdominal pain (occasional), Denies belching, Denies melena, Denies bloating, Reports constipation, Denies dysphagia, Denies excessive flatus, Denies dyspepsia, Reports heartburn, Denies diarrhea, Denies loose stools, Denies nausea, Denies odynophagia and Denies vomiting Reports no additional complaints Musc Reports no additional complaints Neuro Reports no additional complaints Psych Reports no additional complaints Endo Reports no additional complaints Physical Exam Vital Signs: Last Vital Signs Pulse 77 10/11/23 13:47 BP 105/58 L 10/11/23 13:47 BMI result Body Mass Index 18.5 Const General: healthy appearing, no acute distress and well developed Nutritional Appearance: well nourished Orientation/consciousness: patient oriented x3 Resp Effort & Inspection: normal respiratory effort, able to speak in complete sentences, no tracheal deviation and symmetric chest movement Auscultation: clear to auscultation bilaterally Cardio Rate: regular rate GI Inspection: Yes normal to inspection and No distended Palpation (GI): Soft to palpation, not firm, nontender and No hepatosplenomegaly present Auscultation: normal bowel sounds General: Yes no CVA tenderness Back/Spine/Pelvis Back: no CVA tenderness Skin General skin exam: elasticity normal, turgor normal and dry skin Neuro General: patient oriented x3 Psych Appearance: grossly normal Mental Status: mental status grossly normal Assessment & Plan Assessment & Plan (1) Nausea: Code(s): R11.0 - Nausea (2) Abdominal pain: Code(s): R10.9 - Unspecified abdominal pain Qualifiers: Abdominal location: lower abdomen, unspecified Qualified Code(s): R10.30 - Lower abdominal pain, unspecified Plan Patient can try to take famotidine at bedtime. Will check transglutaminase, H pylori breath test. Patient was encouraged to eat smaller meals and more often. Avoid dietary triggers and late night snacking. Staying upright for minimal 3 hours after meals discussed with patient. Patient can take senna after dinner to help her move her bowels better. Patient was encouraged to increase fluid intake and activity to promote better bowel motility. I will see patient in 5 weeks, sooner on as needed basis. Patient is agreeable to this plan and verbalizes understanding of instructions. She was given the opportunity to ask questions and all questions answered. Thank you for allowing me to participate in her care Orders: Orders Lipase Today R10.9 - Unspecified abdominal pain Transglutaminase Ab IgG Today R10.9 - Unspecified abdominal pain H Pylori Breath Test Today Liver Panel Today R74.01 - Elevation of levels of liver transaminase levels Transglutaminase IgA Today R10.9 - Unspecified abdominal pain Medications: New famotidine (Pepcid) 20 mg PO BEDTIME PRN 30 tabs 3RF acid reflux K21.9 - Gastro-esophageal reflux disease without esophagitis sennosides (Natural Senna Laxative) 17.2 mg (2 x 8.6 mg) PO BEDTIME 60 tabs 1RF constipation K59.00 - Constipation, unspecified Discontinued hydroxyzine HCl Discontinued Reason: Doctor's Order 25 mg PO BEDTIME 30 tabs 0RF phenazopyridine (Pyridium) take with food Discontinued Reason: Patient Completed Course 200 mg PO TID PRN 30 tabs 0RF urinary pain or burning levofloxacin Discontinued Reason: Duplicate 750 mg PO DAILY 9 tabs 0RF tramadol Discontinued Reason: Patient Completed Course 50 mg PO BID PRN 7 tabs 0RF pain naproxen Discontinued Reason: Duplicate 375 mg PO BID PRN 20 tabs 0RF pain hydromorphone (Dilaudid) Partial Fill upon patient request. Discontinued Reason: Duplicate 2 mg PO Q8-12H PRN 5 tabs 0RF pain naproxen Discontinued Reason: Doctor's Order 500 mg PO BID PRN 20 tabs 0RF pain Coding Level of Care Code New Pt Level 4 (09773) Diagnoses Nausea R11.0 Lower abdominal pain R10.30 Abdominal location: lower abdomen, unspecified Time Spent (min) 45 Comment 30 minutes spent with patient and additional 15 minutes spent reviewing her records
== END 2023-10-11 14:51 | disposition home or self-care (01) ==
PROVIDERS: Visit Provider Nurse Practitioner Family
DX: R11.0 Nausea (principal); R10.30 Lower abdominal pain, unspecified
CPT/HCPCS: 99204

== ENCOUNTER 2023-10-11 13:38 | Outpatient (REF) | payer MEDICAID, SELFPAY ==
[2023-10-11 16:06] LABS: Alanine Aminotransferase 10 U/L (0-31); Alkaline Phosphatase 59 U/L (39-117); Aspartate Amino Transferase 16 U/L (5-31); Bilirubin Direct < 0.2 mg/dL (0.0-0.5); Bilirubin Total 0.2 mg/dL (0.0-1.0); Lipase 18 U/L (8-78)
[2023-10-12 18:59] LABS: Transglutaminase Ab IgG <1.0 U/mL; Transglutaminase IgA <1.0 U/mL
== END 2023-10-11 13:39 | disposition home or self-care (01) ==
LOC: HO.LAB 13:38
PROVIDERS: PCP Student in an Organized Health Care Education/Training Program; Visit Provider Nurse Practitioner Family
DX: R10.30 Lower abdominal pain, unspecified (principal); R10.9 Unspecified abdominal pain; R74.01 Elevation of levels of liver transaminase levels; R11.0 Nausea
CPT/HCPCS: 36415; 80076; 83690; 86364; 99212

== ENCOUNTER 2023-10-11 14:49 | Outpatient (REF) | payer MEDICAID, SELFPAY ==
[2023-10-14 12:12] LABS: H Pylori Breath Test Negative (Negative)
== END 2023-10-11 14:50 | disposition home or self-care (01) ==
LOC: HO.LNP 14:49
PROVIDERS: Visit Provider Nurse Practitioner Family
DX: R10.9 Unspecified abdominal pain (principal)
CPT/HCPCS: 36415; 80076; 83013; 83690; 86364; 99212